=== PATIENT | male | born 1930 | race Caucasian/White ===

== ENCOUNTER → 2017-12-26 | Outpatient (CLI) | payer MEDICARE ==
--- NOTE | 2017-12-26 08:31 | CT ---
EXAMINATION TYPE: CT abdomen pelvis wo con DATE OF EXAM: 12/26/2017 HISTORY: Hematuria CT DLP: 975 mGycm. Automated Exposure Control for Dose Reduction was Utilized. TECHNIQUE: CT scan of the abdomen and pelvis is performed without oral or IV contrast. COMPARISON: NONE FINDINGS: Within the limitations of a non-contrast study, the following observations are made. LUNG BASES: There is 6 x 5 mm nodule or nodular density right midlung anteriorly axial image 9. There is some mild to minimal scattered linear scarring and/or atelectasis in both bases. There is fairly severe 3 vessel coronary artery calcification noted which is noted marker for coronary artery disease . Calcification at level of mitral valve is appreciated. There is small to moderate-sized hiatal landen ia. LIVER/GB: Liver is somewhat small in size. Gallbladder has distended margins. PANCREAS: Mild fat replaced atrophy of pancreas is present.. SPLEEN: There is marked measuring 18.1 cm long axis axial image 67 and 16.9 cm craniocaudal dimension coronal image 41. ADRENALS: No significant abnormality is seen. KIDNEYS: There is linear density suspected elongated calculus or adjacent smaller calculi lower pole level left kidney, at least one 2 mm calculus is present coronal image 40. There is simple appearing 4.8 x 3.5 cm cyst laterally lower pole level left kidney. There is simple appearing 1.5 cm cyst poste rior laterally mid pole level left kidney axial image 85. No right-sided renal calculi are seen. Ther e are multiple large calculi dependently in bladder. Calculi measure between 1 to 2 cm in diameter BOWEL: Small to moderate size hiatal hernia. No suspicious small or large bowel dilatation. GENITAL ORGANS: There is enlarged prostate gland bulging on bladder base, consistent with BPH. Centra l calcification superiorly could reflect calculi within proximal urethra or superior central zone alonzo culi. More peripheral calculi are seen inferiorly in the enlarged prostate gland. Adjacent pelvic phl eboliths are seen. Bladder wall is mildly thickened up to 6 mm. LYMPH NODES: No greater than 1cm abdominal or pelvic lymph nodes are appreciated. OSSEOUS STRUCTURES: There are bilateral pars defects L4 level. There is grade 1 anterolisthesis of L4 on L5. Advanced disc space narrowing at this level is present. There is slight grade 1 retrolisthesi s of L5 on S1 with advanced disc space narrowing. There is moderate to advanced disc space narrowing L2-L3 level most prominent posteriorly. There is multilevel spurring in the thoracolumbar spine. Osse ous structures are demineralized. There is moderate joint space loss in both hips. Disc herniation L1 -L2 level effaces anterior thecal sac sagittal image 53 and axial image 66. There is facet arthropath y lower lumbar levels. OTHER: There is moderate to severe calcified plaque of abdominal aorta extending into branch vessels. IMPRESSION: 1. Multiple large dependent bladder calculi. Suspect calculi extending into proximal urethra. Suspect small lower pole left renal calculi. 2. Splenomegaly is seen which may warrant further clinical workup. Slightly small liver noted. Clinic al and lab correlation to exclude cirrhosis advised. 3. There is 6 x 5 mm nodule or nodular density right midlung anteriorly, advise contrast-enhanced [facility] CT to assess for additional nodules.
== END | disposition home or self-care (01) ==
LOC: RADCTMAIN 07:48
PROVIDERS: ATTEND Urology
DX: N21.0 Calculus in bladder (principal); R16.1 Splenomegaly, not elsewhere classified; K76.89 Other specified diseases of liver; Z87.442 Personal history of urinary calculi
CPT/HCPCS: 74176

== ENCOUNTER → 2018-01-30 | Outpatient (CLI) | payer MEDICARE ==
[2018-01-30 10:01] LABS: Anisocytosis Moderate; HCT 48.5 % (39.0-53.0); HGB 13.5 gm/dL (13.0-17.5); Hypochromasia Marked; MCH 22.2 pg (25.0-35.0); MCHC 27.8 g/dL (31.0-37.0); MCV 79.7 fL (80.0-100.0); Mean Platelet Volume 7.8; Microcytosis Slight; Platelet Count 329 k/uL (150-450); Poikilocytosis Moderate; RBC 6.08 m/uL (4.30-5.90); RDW 20.4 % (11.5-15.5)
[2018-01-30 10:13] LABS: Calcium 8.6 mg/dL (8.4-10.2); Potassium 4.7 mmol/L (3.5-5.1)
[2018-01-30 10:29] LABS: Band Neutrophils % 1 %; Eosinophils # (M) 0.84 k/uL (0-0.7); Lymphocytes # (M) 0.84 k/uL (1.0-4.8); Monocytes # (M) 1.68 k/uL (0-1.0); Neutrophils % (M) 92 %; Nucleated Red Blood Cells 0 /100 WBC (0-0); Total Cells Counted 200
[2018-01-30 10:31] LABS: Polychromasia Present
[2018-01-30 10:32] LABS: Toxic Vacuolation Present
[2018-01-30 10:38] LABS: WBC 41.9 k/uL (3.8-10.6)
== END | disposition home or self-care (01) ==
LOC: LABPAT 09:10
PROVIDERS: ATTEND Urology
DX: Z01.818 Encounter for other preprocedural examination (principal); Z01.812 Encounter for preprocedural laboratory examination; R53.83 Other fatigue; R31.29 Other microscopic hematuria; N21.0 Calculus in bladder; Z79.899 Other long term (current) drug therapy
CPT/HCPCS: 36415; 80048; 85025; 87086; 93005

== ENCOUNTER 2018-02-04 09:39 | Day surgery (SDC) | payer MEDICARE ==
[2018-01-27 13:43] VITALS: BMI 25.1
--- NOTE | 2018-02-03 14:27 | P.GSHP ---
History of Present Illness H&P Date: 02/03/18 Chief Complaint: Multiple bladder calculi The patient experienced gross hematuria several months ago while in [place]. He was evaluated by me on 12/23/2017 and was noted to have persistent microscopic hematuria. CT scan of the abdomen and pelvis without IV contrast on 12/26/2017 identified some 1-2 mm calculi in the lower pole left kidney. At least 10-12 bladder calculi were present measuring up to 21 millimeters in diameter. The patient has a history of uric acid bladder calculi and underwent TURP and cystolithotripsy in [place] in 2011. He continues to have an enlarged prostate but has no significant symptoms of bladder outflow obstruction at the present. He usually voids every 2-3 hours during the day and once or twice at night. In view of the multiple large bladder calculi and the enlarged prostate it is my feeling that an open procedure would be preferable to repeat cystolithotripsy, especially in view of the difficulty in fragmenting uric acid calculi. - Constitutional Constitutional: Denies chronic pain - Cardiovascular Cardiovascular: Denies chest pain, Denies lightheadedness, Denies orthopnea, Denies palpitations, Denies shortness of breath - Respiratory Respiratory: Denies cough, Denies wheezing - Gastrointestinal Gastrointestinal: Denies abdominal pain, Denies constipation - Genitourinary (Female) Genitourinary: Reports as per HPI Past Medical History Past Medical History: Blood Disorder (Polycythemia and thrombocytosis), Cancer, Deep Vein Thrombosis (DVT), Prostate Disorder Additional Past Medical History / Comment(s): BPH, HX OF DVT'S , SQUAMOUS CELL SKIN CANCER., POLYCYTHEMIA VERA, RECEIVES PHLEBOTOMY'S WITH DR COULTER., WEARS THIGH HIGH SUPPORT HOSE. , HX OF KIDNEY STONES., STATES CURRENTLY HAS MULTIPLE KIDNEY STONES AND HEMATURIA. History of Any Multi-Drug Resistant Organisms: None Reported Past Surgical History: Hernia Repair (left), Joint Replacement, Prostate Surgery (Turp 2003 and 2011, Cystolithotripsy 2003 and 2011) Additional Past Surgical History / Comment(s): TOTAL LEFT KNEE, INGUINAL HERNIA. , CATARACTS., LITHOTRIPSY AND KIDNEY STONES PROCEDURES Past Anesthesia/Blood Transfusion Reactions: No Reported Reaction Past Psychological History: No Psychological Hx Reported Smoking Status: Never smoker Past Alcohol Use History: Occasional Past Drug Use History: None Reported - Past Family History Mother Family Medical History: No Reported History Medications and Allergies Home Medications Medication Instructions Recorded Confirmed Type Anagrelide HCl 1 mg PO BID 01/27/18 01/27/18 History Aspirin 325 mg PO HS 01/27/18 01/27/18 History Cholecalciferol (Vitamin D3) 2,000 unit PO DAILY 01/27/18 01/27/18 History [Vitamin D3] Hydroxyurea [Hydrea] 500 mg PO DAILY 01/27/18 01/27/18 History Occuvite 1 dose PO DAILY 01/27/18 01/27/18 History Prostata Supplement 1 tab PO DAILY 01/27/18 01/27/18 History Vitamin E (Dl,Tocopheryl Acet) 400 unit PO DAILY 01/27/18 01/27/18 History [Vitamin E] Allergies Allergy/AdvReac Type Severity Reaction Status Date / Time No Known Allergies Allergy Verified 01/27/18 13:00 Surgical - Exam - General well developed, well nourished, no distress - ENT no hearing loss - Neck no masses, no bruits, no lymphadectomy - Cardiovascular Rhythm: regular Heart Sounds: normal: S1, S2 Abnormal Heart Sounds: no systolic murmur, no diastolic murmur - Abdomen Abdomen: soft, non tender, no organomegaly - Genitourinary normal penis with no external lesions, testicles non-tender - Rectum Rectum: other (Prostate 2-3+ enlarged) Assessment and Plan (1) Bladder calculi Narrative/Plan: The patient will undergo open cystolithotomy under either general or spinal anesthesia for treatment of his multiple bladder calculi. He is aware of the operative risks which include anesthesia, bleeding, infection and recurrence of his bladder calculi. Status: Acute Code(s): N21.0 - CALCULUS IN BLADDER SNOMED Code(s): 20471489
[~2018-02-04 09:39] MED LIST: DEXAMETHASONE SOD PHOSPHATE 10 MG/ML 1 ML VIAL IV ONE; LACTATED RINGERS 1,000 ML IV SCH; MIDAZOLAM 2 MG/2 ML VIAL IV PRN; ONDANSETRON 4 MG/2 ML VIAL IVP ONE; fentaNYL (PF) 50 MCG/ML 2 ML AMP IV PRN
[2018-02-04] MEDS ORDERED: LIDOCAINE 1% 20 ML VIAL (10MG/ML) FOR IV START INTRADERMA ONE (10:43)
[2018-02-04] MEDS ORDERED: fentaNYL (PF) 50 MCG/ML 2 ML AMP ONE (12:14)
[2018-02-04] MEDS ORDERED: NEOSTIGMINE 1 MG/ML 10 ML VIAL ONE (12:14)
[2018-02-04] MEDS ORDERED: ROCURONIUM BROMIDE 10 MG/ML 10 ML VIAL IV ONE (12:14)
[2018-02-04] MEDS ORDERED: SUCCINYLCHOLINE CHLORIDE 100 MG/5 ML SYR IV ONE (12:14)
[2018-02-04] MEDS ORDERED: GLYCOPYRROLATE 0.2 MG/ML 2 ML VIAL ONE (12:14)
[2018-02-04] MEDS ORDERED: PROPOFOL 10 MG/ML 20 ML VIAL IV ONE (12:14)
[2018-02-04] MEDS ORDERED: LIDOCAINE 1% INJ 10MG/ML (20 ML MDV) ONE (12:14)
[2018-02-04] MEDS: ceFAZolin 1,000 MG in DEXTROSE/WATER 1 50ML.BAG IVPB ONE ×2 (12:16→12:40)
[2018-02-04] MEDS ORDERED: LACTATED RINGERS 1,000 ML IV ONE (12:40)
--- NOTE | 2018-02-04 13:41 | P.OP ---
Date of Procedure: 02/04/18 Preoperative Diagnosis: Multiple bladder calculi Postoperative Diagnosis: Multiple bladder calculi Procedure(s) Performed: Cystolithotomy Surgeon: Lacho Tinsley Estimated Blood Loss (ml): 5 Pathology: other (Bladder calculi) Condition: stable Disposition: PACU Indications for Procedure: The patient is an 87-year-old male who was recently evaluated due to gross hematuria and noted to have at least 10-12 bladder calculi measuring up to 2.1 cm in size present within the bladder on a computed tomography scan of the abdomen and pelvis. Patient has undergone 2 previous endoscopic treatments for bladder calculi over the last 20 years. His bladder calculi are composed of uric acid. Patient has BPH with protrusion of the prostate into the bladder and it is my feeling that open cystolithotomy would be preferable to an endoscopic procedure for removal of the calculi. Description of Procedure: The patient was taken to the operating suite where adequate general anesthesia via orotracheal intubation was instituted. The patient was placed supine. Sequential pneumatic compression stockings were applied to the lower legs. The hair in the lower abdomen was clipped. The genitalia was prepped with Betadine solution. The lower abdominal was painted with iodine prep. The lower abdominal incision was then draped in a sterile fashion. An 18-Chinese coud catheter was passed through the urethra and and into the bladder and approximately 150 mL of sterile water was instilled through the catheter to distend the bladder. A lower abdominal midline incision was made. Bleeding vessels were controlled using electrocautery. The subcutaneous fat and linea alba were incised in the midline. The bladder was identified and a 3-4 cm cystotomy was made. Retractors were used to visualize the interior the bladder. Multiple bladder calculi measuring anywhere from 1-2 cm in size were removed using forceps. There was ocular switch appeared to be adherent to the region of the bladder neck and proximal prostatic urethra and this was removed using forceps. The bladder was thoroughly irrigated with saline and at completion procedure no calculi were present visually or could be palpated. The urothelium was closed using running 3-0 chromic. The bladder muscle was closed using running 3-0 Vicryl. The skin was closed using colleen. A sterile dressing was applied. The patient tolerated procedure well and left the operating room awake and in satisfactory condition. The patient's catheter will remain in place for approximately 1 week. Blood loss was less than 5 mL. It is anticipated that the patient may be discharged later today or in the morning if comfortable.
[2018-02-04 13:42] VITALS: TEMP 97.3
[2018-02-04] MEDS ORDERED: SODIUM CHLORIDE 0.9% 1,000 ML IV ONE (14:11)
[2018-02-04] MEDS ORDERED: hydrALAZINE HCL 20 MG/ML 1 ML VIAL IVP ONE (15:02)
[2018-02-04 15:38] VITALS: BP 159/77; PULSE 70; RESP 18
== END 2018-02-04 15:50 | disposition home or self-care (01) ==
LOC: OR 09:39
PROVIDERS: ATTEND Urology
DX: N21.0 Calculus in bladder (principal); D45 Polycythemia vera; Z86.718 Personal history of other venous thrombosis and embolism; N20.0 Calculus of kidney; K21.9 Gastro-esophageal reflux disease without esophagitis; R31.9 Hematuria, unspecified; N40.0 Benign prostatic hyperplasia without lower urinary tract symptoms; Z79.02 Long term (current) use of antithrombotics/antiplatelets; Z79.82 Long term (current) use of aspirin; Z79.899 Other long term (current) drug therapy
CPT/HCPCS: 51050; C1769; J0360; J1100; J2710; J2405; J2001; J3010; J0690; J0330; J2704

== ENCOUNTER → 2018-08-24 | Outpatient (CLI) | payer MEDICARE ==
--- NOTE | 2018-08-24 11:10 | CT ---
EXAMINATION TYPE: CT angio chest DATE OF EXAM: 08/24/2018 COMPARISON: NONE HISTORY: Shortness of breath CT DLP: 292.10 mGycm. Automated Exposure Control for Dose Reduction was Utilized. CONTRAST: CTA scan of the thorax is performed without and with IV Contrast, patient injected with 80 mL of Iso sorin 370, pulmonary embolism protocol. MIP Images are created on CT scanner and reviewed. FINDINGS: LUNGS: There are small to moderate-sized right greater than left pleural effusions with associated co mpressive atelectasis in both bases. Central ground glass opacity bilaterally is present. MEDIASTINUM: There is suboptimal bolus with heterogeneity, but there is no CT evidence for central or lobar pulmonary embolism pulmonary embolism. Segmental and subsegmental PE cannot entirely excluded with more peripheral heterogeneity identified. There are no greater than 1 cm hilar or mediastinal l ymph nodes. Small pericardial effusion is seen. Cardiomegaly is identified with moderate biatrial dil atation. Severe three-vessel coronary artery calcification is present which is noted marker for under lying coronary artery disease. Main pulmonary artery measures 3.6 cm in diameter axial image 35. Denisha cent ascending aorta measures up to 3.[address] findings consistent with underlying pulmon omayra artery hypertension. There is reflux of contrast into hepatic veins and IVC, CT findings suggesti ng underlying right heart failure. OTHER: Splenomegaly is partially visualized at 18.6 cm long axis axial image 127. This is detailed o n prior CT abdomen pelvis study. Moderate multilevel disc space narrowing and vacuum disc phenomenon is seen. Mild diffuse subcutaneous edema is present. Bridging rib deformity right anterolateral secon d and third ribs is noted. IMPRESSION: 1. Suboptimal bolus without large central pulmonary embolism. 2. Correlate for CHF exacerbation as there is cardiomegaly with small to moderate right greater than left pleural effusions and mild bilateral central alveolar edema. 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
== END | disposition home or self-care (01) ==
LOC: RADCTMAIN 09:11
PROVIDERS: ATTEND Internal Medicine Hematology & Oncology
DX: I27.20 Pulmonary hypertension, unspecified (principal); I50.9 Heart failure, unspecified; I51.7 Cardiomegaly
CPT/HCPCS: 82565; 84520; 71275; 36415; Q9967

== ENCOUNTER → 2018-09-29 | Outpatient (CLI) | payer MEDICARE ==
[2018-09-29 16:21] LABS: Anion Gap 11.3 mmol/L (4.00-12.00); Carbon Dioxide 26.7 mmol/L (21.6-31.8); Potassium 5.6 mmol/L (3.5-5.5)
== END | disposition home or self-care (01) ==
LOC: LABWHC1 10:31
PROVIDERS: ATTEND Internal Medicine Cardiovascular Disease
DX: I50.22 Chronic systolic (congestive) heart failure (principal)
CPT/HCPCS: 36415; 80051; 82565; 84520

== ENCOUNTER → 2018-11-10 | Outpatient (CLI) | payer MEDICARE ==
--- NOTE | 2018-11-10 18:59 | US ---
EXAMINATION TYPE: US venous doppler duplex LE LT DATE OF EXAM: 11/10/2018 6:18 PM COMPARISON: NONE CLINICAL HISTORY: I82.402 Acute embolism and thrombosis of. Pain and ulcer. SIDE PERFORMED: Left TECHNIQUE: The lower extremity deep venous system is examined utilizing real time linear array sonog artem with graded compression, doppler sonography and color-flow sonography. VESSELS IMAGED: External Iliac Vein (EIV) Common Femoral Vein Deep Femoral Vein Greater Saphenous Vein * Femoral Vein Popliteal Vein Small Saphenous Vein * Proximal Calf Veins (* superficial vessels) Left Leg: Negative for DVT No evidence of DVT left leg. IMPRESSION: Normal left leg duplex venous sonogram.
== END | disposition home or self-care (01) ==
LOC: RADUSWWP 17:43
PROVIDERS: ATTEND Internal Medicine Geriatric Medicine
DX: I82.402 Acute embolism and thrombosis of unspecified deep veins of left lower extremity (principal)

== ENCOUNTER → 2019-06-09 | Outpatient (CLI) | payer MEDICARE ==
--- NOTE | 2019-06-09 15:36 | US ---
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 VESSELS IMAGED: External Iliac Vein (EIV) Common Femoral Vein Deep Femoral Vein Greater Saphenous Vein * Femoral Vein Popliteal Vein Small Saphenous Vein * Proximal Calf Veins (* superficial vessels) Grayscale, color doppler, spectral doppler imaging performed of the deep veins of the lower extremiti es. Right Leg: +positive for DVT right femoral vein extending into popliteal vein Left Leg: +positive for DVT left femoral vein extending into popliteal vein IMPRESSION: Positive bilateral deep venous thrombosis from the femoral veins and popliteal veins. Ignacio Lockett (puller machine) spoke with Arely at wound center, patient advised to see Dr. Danielle, young estrella to get in today, patient to go to ER. This was documented at 1450pm on 06/09/2019.
== END ==
LOC: RADUSWWP 13:27
PROVIDERS: ATTEND Thoracic Surgery (Cardiothoracic Vascular Surgery)
DX: I82.419 Acute embolism and thrombosis of unspecified femoral vein (principal); I82.439 Acute embolism and thrombosis of unspecified popliteal vein; L97.222 Non-pressure chronic ulcer of left calf with fat layer exposed
CPT/HCPCS: 93970

== ENCOUNTER → 2019-06-11 | Outpatient (CLI) | payer MEDICARE ==
--- NOTE | 2019-06-11 13:58 | CT ---
CT CHEST FOR PULMONARY EMBOLISM. EXAMINATION TYPE: CT angio chest DATE OF EXAM: 06/11/2019 INDICATION: History of polycythemia, known DVTs. CT DLP: 520 mGycm, Automated exposure control for dose reduction was used. CONTRAST: Patient injected with 100 mL of Isovue 370. COMPARISON: 08/24/2018 TECHNIQUE: CT of the chest is performed on a spiral scan at 2 mm thick sections. Study is performed with intravenous contrast timed for evaluation for pulmonary embolism. This will limit additional po rtions of the evaluation. 3-D MIP images reconstructed by the technologist are reviewed on the compu ter in the coronal and sagittal planes. FINDINGS: No persistent filling defects are evident to suggest an acute pulmonary embolism. No mediastinal or hilar adenopathy enlarged by CT criteria is evident. The ascending aorta diameter at the level of the main pulmonary artery is 4.1 cm. The main pulmonary artery diameter at the bifur cation is 3.8 cm. Minimal right pleural effusion is present. Very minimal left pleural fluid may be present. Some mild coronary artery calcification is noted. Prior right upper rib fracture with deformity is evident. Some compressive atelectasis or scarring ma y be adjacent. Small amount of scarring may be adjacent to the right major fissure, series 5 image [address] sections are obtained through the upper abdomen. There is marked splenomegaly. Cholelithia sis is likely present. IMPRESSIONS: 1. No acute pulmonary embolism. 2. Marked splenomegaly. 3. Small right and very minimal left pleural effusion, diminished from comparison
== END | disposition home or self-care (01) ==
LOC: RADCTMAIN 12:24
PROVIDERS: ATTEND Internal Medicine Geriatric Medicine
DX: J90 Pleural effusion, not elsewhere classified (principal)
CPT/HCPCS: 82565; 84520; 71275; 36415; Q9967

== ENCOUNTER → 2019-07-13 | Outpatient (CLI) | payer MEDICARE ==
[2019-07-13 15:52] LABS: African American GFR (CKD) 40.5 (60.0-200.0); Albumin 4.1 g/dL (3.80-4.90); Albumin/Globulin Ratio 1.86 (1.60-3.17); Anion Gap 13.2 mmol/L (4.00-12.00); BUN/Creat Ratio 28.24 Ratio (12.00-20.00); Calcium 8.6 mg/dL (8.7-10.3); Carbon Dioxide 23.8 mmol/L (21.6-31.8); Globulin 2.2 g/dL (1.6-3.3); Potassium 4.1 mmol/L (3.5-5.5); Total Bilirubin 0.9 mg/dL (0.2-1.2); Total Protein 6.3 g/dL (6.2-8.2)
== END | disposition home or self-care (01) ==
LOC: LABWHC1 08:29
PROVIDERS: ATTEND Nurse Practitioner Gerontology
DX: I11.0 Hypertensive heart disease with heart failure (principal); I50.9 Heart failure, unspecified
CPT/HCPCS: 36415; 80053; 83880

== ENCOUNTER → 2019-07-13 | Outpatient (CLI) | payer MEDICARE ==
--- NOTE | 2019-07-21 11:03 | P.ARTDOP ---
Arterial Doppler LOWER EXTREMITY ARTERIAL DOPPLER: DATE OF SERVICE: 07/13/2019 Reason for study: Left calf ulcer. Doppler waveforms: Multiphasic bilaterally throughout. Pulse volume recording: []. Pressure gradients: []. Ankle-brachial indices: []. Toe pressures: 57 on the right, 53 on the left Impression: Waveforms and toe pressures suggests adequate circulation for healing. Clinical correlation recommended in view of limited study..
== END | disposition home or self-care (01) ==
LOC: RADUSWWP 08:59
PROVIDERS: ATTEND Thoracic Surgery (Cardiothoracic Vascular Surgery)
DX: L97.222 Non-pressure chronic ulcer of left calf with fat layer exposed (principal)
CPT/HCPCS: 93922

== ENCOUNTER → 2019-10-15 | Outpatient (CLI) | payer MEDICARE ==
[2019-10-15 11:59] LABS: Potassium 4.5 mmol/L (3.5-5.1)
[2019-10-15 12:04] LABS: Anisocytosis Slight; HCT 46.8 % (39.0-53.0); HGB 12.8 gm/dL (13.0-17.5); Hypochromasia Marked; MCH 23.4 pg (25.0-35.0); MCHC 27.3 g/dL (31.0-37.0); MCV 85.7 fL (80.0-100.0); Mean Platelet Volume 10.6; Platelet Count 506 k/uL (150-450); Poikilocytosis Slight; RBC 5.46 m/uL (4.30-5.90); RDW 19.3 % (11.5-15.5)
[2019-10-15 13:00] LABS: Lymphocytes # (M) 1.91 k/uL (1.0-4.8); Metamyelocytes # (M) 0.64 k/uL (0); Metamyelocytes % 1 %; Monocytes # (M) 1.91 k/uL (0-1.0); Myelocytes # (M) 0.64 k/uL (0); Myelocytes % 1 %; Neutrophils # (M) 59.06 k/uL (1.3-7.7); Neutrophils % (M) 93 %; Nucleated Red Blood Cells 0 /100 WBC (0-0); Total Cells Counted 200
[2019-10-15 13:01] LABS: Polychromasia Present
[2019-10-15 14:22] LABS: WBC 63.5 k/uL (3.8-10.6)
== END | disposition home or self-care (01) ==
LOC: LABPAT 10:54
PROVIDERS: ATTEND Surgery
DX: Z01.818 Encounter for other preprocedural examination (principal); I99.8 Other disorder of circulatory system; L97.821 Non-pressure chronic ulcer of other part of left lower leg limited to breakdown of skin
CPT/HCPCS: 36415; 80051; 82565; 84520; 85025

== ENCOUNTER 2019-10-19 06:51 | Inpatient (IN) | payer MEDICARE ==
[2019-10-15 09:51] VITALS: BMI 25.8
[~2019-10-19 06:51] MED LIST changes: +ASPIRIN 325 MG TAB PO STA; -DEXAMETHASONE SOD PHOSPHATE 10 MG/ML 1 ML VIAL IV ONE; -LACTATED RINGERS 1,000 ML IV SCH; -MIDAZOLAM 2 MG/2 ML VIAL IV PRN; -ONDANSETRON 4 MG/2 ML VIAL IVP ONE; +SODIUM CHLORIDE 0.9% 1,000 ML in EMPTY BAG 1 BAG IV ONE; +ZOLPIDEM 5 MG TAB PO PRN; -fentaNYL (PF) 50 MCG/ML 2 ML AMP IV PRN
[2019-10-19] MEDS ORDERED: MIDAZOLAM 2 MG/2 ML VIAL IV ONE (08:57)
[2019-10-19] MEDS ORDERED: LIDOCAINE 1% INJ 10MG/ML (20 ML MDV) SQ ONE (08:59)
[2019-10-19] MEDS ORDERED: IOPAMIDOL-250 100ML BTL IV ONE (09:16)
[2019-10-19] MEDS ORDERED: VANCOMYCIN IV PER PHARMACY 1 EACH MISC MISCELLANE SCH (10:00)
--- NOTE | 2019-10-19 10:00 | IR ---
Fluoroscopy INDICATION: Pain FINDINGS: Fluoroscopy time: 3.6 minutes Images obtained: 5 video fluoroscopy. Please see complete report forthcoming from the vascular surgery department. IMPRESSIONS: 1. Documentation of fluoroscopy.
--- NOTE | 2019-10-19 10:01 | P.OP ---
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 Since moderate atherosclerotic disease of the distal SFA Procedure: Aortogram with selective left lower extremity runoffs via right femoral artery access under ultrasound guidance Surgeon: Darius Anesthesia: Moderate sedation times 25 minutes Estimated blood loss: 5 mL Complications: None Condition: Stable Findings: Aorta: Atherosclerotic, calcific disease without any significant stenosis. Mild ectasia noted at the distal aorta. Iliacs: Bilateral common iliac arteries are patent with atherosclerotic, calcific disease. Internal iliac arteries are patent without any significant stenosis or disease. External iliac arteries bilaterally are patent without any hemodynamic significant stenosis. Femorals: Bilateral common femoral arteries are patent without significant stenosis. Bilateral profundus femoris arteries are patent without significant stenosis. Left superficial femoral artery is patent with calcific disease at the distal aspect. No significant stenosis noted. Popliteal: Left popliteal artery is patent. There is difficult to visualize due to hardware in the knee. Flow is normal and brisk pass this area to the tibial peroneal trunk. Tibials: Left tibioperoneal trunk is patent with some atherosclerotic, calcific disease. Three-vessel takeoff anterior tibial artery and peroneal with sharp occlusion noted at the midportion of the anterior tibial artery. No recollateralization is noted at the anterior tibial artery to the dorsalis pedis. There is reconstitution of the posterior tibial artery above the ankle extending into the foot. Operative narrative: After written informed consent was obtained the patient all risks benefits competitions were described the patient is brought to the [facility] and laid in a supine position. The area of the right groin was prepped and draped in the usual sterile fashion. Local anesthesia with moderate sedation was performed with continuous pulse ox monitoring and EKG monitoring. Utilizing ultrasound the right femoral artery was visualized and shown to be patent without any significant plaque. Utilizing a multipurpose needle under ultrasound guidance the artery was accessed. Guidewire was placed followed by 5-Occitan sheath. 035 Glidewire was then placed into the aorta followed by ochoa's hook catheter. Angiogram was then obtained of the aorta. Catheter was then placed at the bifurcation left lower extremity was accessed with Glidewire followed by an angled glide catheter. Selective left lower extremity angiogram was then obtained with catheter placement at the femoral artery. Once completed all guidewires, catheters and sheaths were removed and pressure was placed for hemostasis. Patient tolerated procedure well was sent to PACU for recovery Disposition: Patient will require a left below-knee amputation which based on angiogram should heal. I discussed this with his primary care physician as well as wound care physician. We will perform the procedure tomorrow.
--- NOTE | 2019-10-19 10:47 | P.CRDCN ---
History of Present Illness Consult date: 10/19/19 Requesting physician: Troy Mccoy Reason for Consult (text): Preop clearance History of present illness: This is an 89-year-old gentleman who follows with Dr. Vigil in the office. He saw him on September [id number]. In August of last year the patient underwent an echocardiogram with Doppler study which revealed mild LV systolic dysfunction, he has moderate tricuspid regurg and severe pulmonary hypertension as well as mild aortic regurgitation. A 24-hour Holter was also performed which did reveal episodes of atrial fibrillation. Johnna scan revealed nonischemic cardiomyopathy with an ejection fraction of 35%. During the office visit in September of last Dr. Vigil discussed anticoagulation with the patient and his , they decided to take only an aspirin daily. He also discussed the possibility of cardiac catheterization, they opted for medical therapy at that time. Patient denies any history of hypertension, no diabetes, no hyperlipidemia, nonsmoker, rarely does he drink alcohol. 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 Patient presented to the hospital because of critical limb ischemia of the left lower extremity, gangrene of the forefoot and toes with chronic venous and arterial ulcerations. He underwent an aortogram with selective left lower extremity runoffs via right femoral artery access under ultrasound guidance by Dr. Mccoy. He was found to have an occluded left anterior tibial and posterior tibial arteries. Moderate atherosclerotic disease of the distal SFA. Patient will require a left below the knee amputation. Cardiology was asked for preop clearance. Patient denies any recent chest discomfort and overall he states his breathing has been stable. Blood pressure 104/50, heart rate in the 80s, afebrile. 92% on room air. Laboratory data, [facility] labs are performed on October 14, white blood cell count 63.5, hemoglobin 12.8, platelet count 506. Sodium 138, potassium 4.5, BUN 46, creatinine 1.3. No lab data has been obtained today as of yet. No chest x-ray. No EKG. At the time of my examination, patient is lying comfortably in bed, denies any chest discomfort, no difficulty in breathing, no palpitations. He is having some discomfort in his left foot. Past Medical History Past Medical History: Blood Disorder, Cancer, Deep Vein Thrombosis (DVT), Hearing Disorder / Deafness, Prostate Disorder Additional Past Medical History / Comment(s): BPH, HX OF DVT'S , SQUAMOUS CELL SKIN CANCER., POLYCYTHEMIA VERA, RECEIVES PHLEBOTOMY'S WITH DR COULTER., WEARS THIGH HIGH SUPPORT HOSE. , HX OF KIDNEY STONES., CURRENTLY HAS NHW LT LOWER LEG AND TOES, [place]-USES HEARING AIDS History of Any Multi-Drug Resistant Organisms: MRSA, Other MDRO Date of last positivie culture/infection: 08/11/19 MDRO Source:: Right Leg Past Surgical History: Hernia Repair, Joint Replacement Additional Past Surgical History / Comment(s): TOTAL LEFT KNEE, INGUINAL HERNIA., CATARACTS., LITHOTRIPSY AND KIDNEY STONES PROCEDURES, COLONOSCOPY Past Anesthesia/Blood Transfusion Reactions: No Reported Reaction Past Psychological History: No Psychological Hx Reported Smoking Status: Never smoker Past Alcohol Use History: Occasional Past Drug Use History: None Reported - Past Family History Mother Family Medical History: No Reported History Medications and Allergies Home Medications Medication Instructions Recorded Confirmed Type Allopurinol [Zyloprim] 300 mg PO DAILY 10/15/19 10/19/19 History Apixaban [Eliquis] 2.5 mg PO BID 10/15/19 10/15/19 History Ferrous Sulfate [Feosol] 325 mg PO DAILY 10/15/19 10/19/19 History Furosemide [Lasix] 10 mg PO DAILY 10/15/19 10/19/19 History Furosemide [Lasix] 20 mg PO DAILY 10/15/19 10/19/19 History Hydroxyurea [Hydrea] 500 mg PO Q2D 10/15/19 10/15/19 History Losartan [Cozaar] 25 mg PO DAILY 10/15/19 10/19/19 History Metoprolol Succinate [Toprol XL] 12.5 mg PO DAILY 10/15/19 10/19/19 History Potassium Citrate [Potassium 10 meq PO TID 10/15/19 10/19/19 History Citrate ER] Vit C/E/Zn/Coppr/Lutein/Zeaxan 1 each PO DAILY 10/15/19 10/19/19 History [Preservision Areds 2 Softgel] Allergies Allergy/AdvReac Type Severity Reaction Status Date / Time No Known Allergies Allergy Verified 10/15/19 09:27 Physical Exam Vitals: Vital Signs Temp Pulse Resp BP BP Pulse Ox 10/19/19 10:41 85 16 104/54 91 L 10/19/19 10:27 98.4 F 81 16 116/75 91 L 10/19/19 09:40 84 16 100/57 93 L 10/19/19 07:15 99.1 F 92 18 116/69 97 Intake and Output 10/18/19 10/19/19 10/19/19 22:59 06:59 14:59 Intake Total 200 Balance 200 Intake: IV 200 Other: Weight 83.8 kg PHYSICAL EXAMINATION: GENERAL: 89-year-old gentleman in no acute distress at the time of my examination HEENT: Head is atraumatic, normocephalic. Pupils equal, round. Sclera anicteric. Conjunctiva are clear. Mucous membranes of the mouth are moist. Neck is supple. There is no elevated jugular venous pressure.] No carotid bruit is heard. HEART EXAMINATION: Heart S1 and S2 with diastolic murmur is heard CHEST EXAMINATION: Lungs are clear to auscultation and precussion. No chest wall tenderness is noted on palpation or with deep breathing. ABDOMEN: Soft, nontender. Bowel sounds are heard. No organomegaly noted. EXTREMITIES: Doppler to 1+ peripheral pulses with evidence of bilateral peripheral edema. The left foot is necrotic, black, foul odor. NEUROLOGIC [patient is awake, alert and oriented 3 Results Current Medications Generic Name Dose Route Start Last Admin Trade Name Freq PRN Reason Stop Dose Admin Allopurinol 300 mg 10/20/19 09:00 Zyloprim PO DAILY NEDRA Alprazolam 0.25 mg 10/19/19 05:55 Xanax PO Q6HR PRN Mild Anxiety Ferrous Sulfate 325 mg 10/20/19 09:00 Feosol PO DAILY NEDRA Sodium Chloride 1,000 ml/ IV 1,000 mls @ 81.647 mls/hr 10/19/19 05:55 10/19/19 07:20 Solution IV 10/19/19 18:09 200 mls .[id number] ONE Administration 1 ML/KG/HR Piperacillin Sod/Tazobactam 100 mls @ 25 mls/hr 10/19/19 16:00 Sod 3.375 gm/ Sodium Chloride IVPB Q8HR NEDRA Vancomycin HCl 1,500 mg/ 250 mls @ 125 mls/hr 10/19/19 12:00 Sodium Chloride IVPB 10/19/19 13:59 ONCE ONE Sodium Chloride 1,000 mls @ 75 mls/hr 10/19/19 10:30 Saline 0.9% IV .[id number] [facility] Metoprolol Succinate 12.5 mg 10/20/19 09:00 Toprol Xl PO DAILY [facility] Miscellaneous Information 1 each 10/19/19 10:00 Pharmacy To Dose Iv Vancomycin MISCELLANE DIRECTED [facility] Protocol Zolpidem Tartrate 5 mg 10/19/19 05:55 Ambien PO HS PRN Insomnia Intake and Output 10/18/19 10/19/19 10/19/19 22:59 06:59 14:59 Intake Total 200 Balance 200 Intake: IV 200 Other: Weight 83.8 kg Patient Weight 10/20/19 06:59 Weight 83.8 kg EKG Interpretations (text) No EKG performed Assessment and Plan Plan: Assessment and plan #1 critical limb ischemia of the left lower extremity, gangrene of the forefoot and toes with chronic venous and arterial are serrations, status post angiogram with lower extremity runoffs, patient has occluded left anterior tibial and posterior tibial arteries, moderate atherosclerotic disease in the distal SFA and the recommendation is to go for a left below the knee amputation. #2 paroxysmal atrial fibrillation, not on anticoagulation, only on a baby aspirin daily #3 cardiomyopathy, as per Johnan scan stress test performed one year ago which revealed an ejection fraction of 35% #4 polycythemia vera #5 history of DVT Plan We will obtain a repeat echocardiogram with Doppler study. Obtain fasting lipid profile, continue Lopressor. Further recommendations to follow. DNP note has been reviewed, I agree with a documented findings and plan of care. Patient was seen and examined.
[2019-10-19] MEDS: SODIUM CHLORIDE 0.9% 1,000 ML IV SCH (11:52)
[2019-10-19] MEDS ORDERED: VANCOMYCIN 1,500 MG in SODIUM CHLORIDE 0.9% 250 ML IVPB ONE (12:00)
--- NOTE | 2019-10-19 12:24 | P.HPIM ---
History of Present Illness H&P Date: 10/19/19 This is an 89-year-old male patient of Drs. Danielle and Alina Rodriguez. 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 Coulter, history of DVTs most recently in June 2019 positive for bilateral lower extremity DVTs of the femoral and popliteal veins. Patient has [facility] ulcerations to the lateral left lower leg and due to nonhealing, not improving, patient was set up with vascular surgery for further evaluation and possible need for amputation. Dr. Mccoy brought the patient in for aortogram with selective left lower extremity runoffs via right femoral artery access under ultrasound guidance. He was found to have an occluded left anterior tibial and posterior tibial arteries. Moderate atherosclerotic disease of the distal SFA. Dr. Mccoy requested that we admit the patient and he will schedule him for a below the knee amputation tomorrow. We have added a consult for cardiology for preop clearance. Patient is seen today in the postop recovery area. Son has been updated. Patient denies any chest pain, difficulty breathing. Blood pressure 104/50, heart rate in the 80s, afebrile. 92% on room air. Patient will be transferred to the cardiac stepdown unit. Patient started on IV Zosyn and vancomycin. Review of Systems Constitutional: Denies chills, Denies fatigue, Denies fever, Denies lethargy, Denies malaise, Denies poor appetite Eyes: denies blurred vision, denies pain Ears, nose, mouth and throat: Denies dental pain, Denies dysphagia, Denies headache, Denies nasal congestion, Denies nasal discharge, Denies sore throat, Denies vertigo Cardiovascular: Denies chest pain, Denies decreased exercise tolerance, Denies dyspnea on exertion, Denies edema, Denies leg edema, Denies lightheadedness, Denies palpitations, Denies shortness of breath, Denies syncope Respiratory: Denies cough, Denies cough with sputum, Denies dyspnea, Denies hemoptysis, Denies home oxygen, Denies respiratory infections, Denies sleep apnea, Denies wheezing Gastrointestinal: Denies abdominal pain, Denies diarrhea, Denies nausea, Denies vomiting Genitourinary: Denies urinary frequency, Denies urinary retention Musculoskeletal: Denies frequent falls, Denies gait dysfunction, Denies muscle weakness, Denies myalgias Integumentary: Reports wounds, Denies pruritus, Denies rash Neurological: Denies change in mentation, Denies change in speech, Denies gait dysfunction, Denies numbness, Denies seizures, Denies weakness Psychiatric: Denies anxiety, Denies depression Endocrine: Denies fatigue, Denies weight change Past Medical History Past Medical History: Blood Disorder, Cancer, Deep Vein Thrombosis (DVT), Hearing Disorder / Deafness, Prostate Disorder Additional Past Medical History / Comment(s): BPH, HX OF DVT'S , SQUAMOUS CELL SKIN CANCER., POLYCYTHEMIA VERA, RECEIVES PHLEBOTOMY'S WITH DR COULTER., WEARS THIGH HIGH SUPPORT HOSE. 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 He drinks alcohol occasionally. - Past Family History Mother Family Medical History: No Reported History Additional Family Medical History / Comment(s): Mother of old age. Father Additional Family Medical History / Comment(s): Father at a young age from an accident. Brother(s) Additional Family Medical History / Comment(s): Patient had 3 brothers one has of old age and one is alive at age 91 and one at 94 with no major medical problems. Sister(s) Additional Family Medical History / Comment(s): Patient has one sister and she is with history of Down syndrome. Son(s) Additional Family Medical History / Comment(s): Patient has 2 sons with no major medical problems. Medications and Allergies Home Medications Medication Instructions Recorded Confirmed Type Allopurinol [Zyloprim] 300 mg PO DAILY 10/15/19 10/19/19 History Apixaban [Eliquis] 2.5 mg PO BID 10/15/19 10/15/19 History Ferrous Sulfate [Feosol] 325 mg PO DAILY 10/15/19 10/19/19 History Furosemide [Lasix] 10 mg PO DAILY 10/15/19 10/19/19 History Furosemide [Lasix] 20 mg PO DAILY 10/15/19 10/19/19 History Hydroxyurea [Hydrea] 500 mg PO Q2D 10/15/19 10/15/19 History Losartan [Cozaar] 25 mg PO DAILY 10/15/19 10/19/19 History Metoprolol Succinate [Toprol XL] 12.5 mg PO DAILY 10/15/19 10/19/19 History Potassium Citrate [Potassium 10 meq PO TID 10/15/19 10/19/19 History Citrate ER] Vit C/E/Zn/Coppr/Lutein/Zeaxan 1 each PO DAILY 10/15/19 10/19/19 History [Preservision Areds 2 Softgel] Allergies Allergy/AdvReac Type Severity Reaction Status Date / Time No Known Allergies Allergy Verified 10/15/19 09:27 Physical Exam Vitals: Vital Signs Temp Pulse Resp BP Pulse Ox 10/19/19 07:15 99.1 F 92 18 116/69 97 Intake and Output 10/18/19 10/19/19 10/19/19 22:59 06:59 14:59 Intake Total 200 Balance 200 Intake: IV 200 Other: Weight 83.8 kg Gen: This is an 89-year-old male patient resting on stretcher. He appears to be in no acute distress. HEENT: Head is atraumatic, normocephalic. Pupils equal, round. Sclerae is anicteric. NECK: Supple. No JVD. No lymphadenopathy. No thyromegaly. LUNGS: Clear to auscultation. No wheezes or rhonchi. No intercostal retractions. HEART: Regular rate and rhythm. Systolic murmur. ABDOMEN: Soft. Bowel sounds are present. No masses. No tenderness. EXTREMITIES: No pedal edema. Left lower extremity has a large wound to the lateral malleolus/distal tib-fib area with black necrotic tissue. Black necrotic tissue to the toes. Foul odor. Erythema from the left knee to toes. NEUROLOGICAL: Patient is awake, alert and oriented x3. Cranial nerves 2 through 12 are grossly intact. Results CBC & Chem 7: 10/19/19 11:48 10/19/19 11:48 Thrombosis Risk Factor Assmnt - DVT/VTE Prophylaxis DVT/VTE Prophylaxis: Pharmacologic Prophylaxis ordered Assessment and Plan Plan: 1. Critical limb ischemia left lower extremity with gangrene of the foot and toes with significant vascular ulcers. Patient admitted to the cardiac stepdown unit. Consult with cardiology for preop clearance. Dr. Mccoy has scheduled the patient for below the knee amputation for tomorrow. 2. Paroxysmal atrial fibrillation. Continue Toprol-XL 12.5 mg daily. 3. Nonischemic cardiomyopathy. Continue Toprol-XL. Hold Lasix for today. 4. 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 Hold eliquis until after procedure. Patient's last dose of eliquis was on October 14. 5. Polycythemia vera. Hold Hydrea. 6. Hypertension. Hold losartan 25 mg daily, hold Lasix. Continue Toprol-XL. 7. Chronic anemia. Continue ferrous sulfate.. 8. Chronic gout. Continue allopurinol 300 mg daily. 9. Squamous cell skin cancer, stable. 10. Chronic kidney disease stage III. Avoid nephrotoxic agents, hypertension. 11. DVT prophylaxis. Resume eliquis following procedure. 12. GI prophylaxis. Protonix IV. Patient will be admitted to the hospital for a minimum of 2 night stay. Discharge plan: Most likely return home. Impression and plan of care have been directed as dictated by the signing physician. Nicki Kapadia nurse practitioner acting as scribe for signing physician.
[2019-10-19 12:37] LABS: Anisocytosis Slight; HCT 44.7 % (39.0-53.0); HGB 12.6 gm/dL (13.0-17.5); Hypochromasia Marked; MCH 24.3 pg (25.0-35.0); MCHC 28.2 g/dL (31.0-37.0); MCV 86.2 fL (80.0-100.0); Mean Platelet Volume 10.2; Platelet Count 456 k/uL (150-450); Poikilocytosis Slight; RBC 5.19 m/uL (4.30-5.90)
[2019-10-19 12:48] LABS: Albumin 2.9 g/dL (3.5-5.0); Calcium 7.8 mg/dL (8.4-10.2); Potassium 4.3 mmol/L (3.5-5.1)
[2019-10-19 12:55] LABS: WBC 57.9 k/uL (3.8-10.6)
[2019-10-19] MEDS ORDERED: fentaNYL (PF) 50 MCG/ML 2 ML AMP IV PRN (15:02)
[2019-10-19] MEDS ORDERED: ONDANSETRON 4 MG/2 ML VIAL IVP ONE (15:02)
[2019-10-19] MEDS: PIPERACILLIN-TAZOBACTAM 3.375 GM in SODIUM CHLORIDE 0.9% 100 ML IVPB SCH (16:21)
[2019-10-20] MEDS: PIPERACILLIN-TAZOBACTAM 3.375 GM in SODIUM CHLORIDE 0.9% 100 ML IVPB SCH ×3 (01:32→18:26)
[2019-10-20] MEDS: SODIUM CHLORIDE 0.9% 1,000 ML IV SCH (01:32)
[2019-10-20] MEDS: VANCOMYCIN 1,500 MG in SODIUM CHLORIDE 0.9% 250 ML IVPB SCH (05:53)
[2019-10-20] MEDS: METOPROLOL SUCCINATE (ER) 25 MG TAB.ER.24H PO SCH (08:15)
[2019-10-20] MEDS: ALLOPURINOL 300 MG TAB PO SCH (08:16)
[2019-10-20] MEDS: FERROUS SULFATE 325 MG TAB PO SCH (08:16)
[2019-10-20] MEDS ORDERED: NON FORMULARY DRUG (Vit C/E/Zn/Coppr/Lutein/Zeaxan [Preservision Areds 2 Softgel] 1 EACH) PO SCH (09:00)
--- NOTE | 2019-10-20 11:08 | P.PN ---
Subjective Progress Note Date: 10/20/19 This is an 89-year-old male patient of Drs. Danielle and Alina Rodriguez. 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 Keating, history of DVTs most recently in June 2019 positive for bilateral lower extremity DVTs of the femoral and popliteal veins. Patient has been [facility] ulcerations to the lateral left lower leg and due to nonhealing, not improving, patient was set up with vascular surgery for further evaluation and possible need for amputation. Dr. Mccoy brought the patient in for aortogram with selective left lower extremity runoffs via right femoral artery access under ultrasound guidance. He was found to have an occluded left anterior tibial and posterior tibial arteries. Moderate atherosclerotic disease of the distal SFA. Dr. Mccoy requested that we admit the patient and he will schedule him for a below the knee amputation tomorrow. We have added a consult for cardiology for preop clearance. Patient is seen today in the postop recovery area. Son has been updated. Patient denies any chest pain, difficulty breathing. Blood pressure 104/50, heart rate in the 80s, afebrile. 92% on room air. Patient will be transferred to the cardiac stepdown unit. Patient started on IV Zosyn and vancomycin. 10/20: Patient seen and examined this morning. Awaiting left BKA with Dr. Mccoy at this time. Patient was seen by Dr. Gonzalez and cleared for surgery from cardiology standpoint. Eliquis remains on hold at this time. Vital signs are stable. Patient is afebrile heart rate is 80 blood pressure is 116/64 pulse ox 95% on room air. Labs were reviewed today. 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 We will continue IV antibiotics at this time. Patient is being followed by PT and OT. Objective - Vital Signs Vital signs: Vital Signs Temp 98.2 F 10/20/19 08:00 Pulse 80 10/20/19 08:00 Resp 16 10/20/19 08:00 BP 116/64 10/20/19 08:00 Pulse Ox 95 10/20/19 08:00 Intake & Output 10/19/19 10/20/19 10/20/19 18:59 06:59 18:59 Intake Total 925 300 325 Output Total 575 400 250 Balance 350 -100 75 Weight 83.8 kg 86 kg Intake: IV 200 Intake, IV Titration 475 300 325 Amount Lactated Ringers 1,000 ml 300 @ 20 mls/hr IV .Q24H NEDRA Rx#:[id number] Sodium Chloride 0.9% 1, 225 75 000 ml @ 75 mls/hr IV . [id number] NEDRA Rx#:[id number] Vancomycin 1,500 mg In 250 250 Sodium Chloride 0.9% 250 ml @ 125 mls/hr IVPB Q24H NEDRA Rx#:[id number] Oral 250 Output: Urine 575 400 250 Other: Voiding Method Self-Catheterization Self-Catheterization Self-Catheterization # Voids 0 # Bowel Movements 1 1 - Exam Gen: This is an 89-year-old male patient resting on stretcher. He appears to be in no acute distress. HEENT: Head is atraumatic, normocephalic. Pupils equal, round. Sclerae is anicteric. NECK: Supple. No JVD. No lymphadenopathy. No thyromegaly. LUNGS: Clear to auscultation. No wheezes or rhonchi. No intercostal retractions. HEART: Regular rate and rhythm. SYS murmur. ABDOMEN: Soft. Bowel sounds are present. No masses. No tenderness. EXTREMITIES: +1 pedal edema. Left lower extremity has a large wound to the lateral malleolus/distal tib-fib area with black necrotic tissue. Black necrotic tissue to the toes. Foul odor. Erythema from the left knee to toes. NEUROLOGICAL: Patient is awake, alert and oriented x3. Cranial nerves 2 through 12 are grossly intact. - Labs CBC & Chem 7: 10/19/19 11:48 10/19/19 11:48 Labs: Abnormal Lab Results - Last 24 Hours (Table) 10/19/19 10/19/19 Range/Units 11:48 11:48 WBC 57.9 H* (3.8-10.6) k/uL Hgb 12.6 L (13.0-17.5) gm/dL MCH 24.3 L (25.0-35.0) pg MCHC 28.2 L (31.0-37.0) g/dL RDW 19.0 H (11.5-15.5) % Plt Count 456 H (150-450) k/uL BUN 48 H (9-20) mg/dL Creatinine 1.30 H (0.66-1.25) mg/dL Glucose 103 H (74-99) mg/dL Calcium 7.8 L (8.4-10.2) mg/dL Alkaline Phosphatase 180 H (38-126) U/L Total Protein 6.0 L (6.3-8.2) g/dL Albumin 2.9 L (3.5-5.0) g/dL Assessment and Plan Plan: 1. Critical limb ischemia left lower extremity with gangrene of the foot and toes with significant vascular ulcers. Dr. Mccoy has scheduled the patient for below the knee amputation for today. Patient was cleared by cardiology. 2. Paroxysmal atrial fibrillation. Continue Toprol-XL 12.5 mg daily. 3. Nonischemic cardiomyopathy. Continue Toprol-XL. Hold Lasix for today. 4. 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 Hold eliquis until after procedure. Patient's last dose of eliquis was on October 14. 5. Polycythemia vera. Hold Hydrea. 6. Hypertension. Hold losartan 25 mg daily, hold Lasix. Continue Toprol-XL. 7. Chronic anemia. Continue ferrous sulfate.. 8. Chronic gout. Continue allopurinol 300 mg daily. 9. Squamous cell skin cancer, stable. 10. Chronic kidney disease stage III. Avoid nephrotoxic agents, hypertension. 11. DVT prophylaxis. Resume eliquis following procedure. 12. GI prophylaxis. Protonix IV. Patient will be admitted to the hospital for a minimum of 2 night stay. Discharge plan: Most likely return home. Impression and plan of care have been directed as dictated by the signing physician. Vianney Velasquez nurse practitioner acting as scribe for signing physi diamond.
[2019-10-20] MEDS ORDERED: IV FLUID CONTINUATION 1,000 ML IV ONE ×2 (11:39→11:54)
[2019-10-20] MEDS ORDERED: LIDOCAINE 1% INJ 10MG/ML (20 ML MDV) ONE (11:45)
[2019-10-20] MEDS ORDERED: KETOROLAC 30 MG/ML 1 ML VIAL ONE (11:45)
[2019-10-20] MEDS ORDERED: ePHEDrine SULFATE/0.9% NACL/PF 50 MG/5 ML SYRINGE IV ONE (11:45)
[2019-10-20] MEDS ORDERED: PHENYLEPHRINE-0.9% NACL SYG 1 MG/10 ML SYRINGE ONE (11:45)
[2019-10-20] MEDS ORDERED: fentaNYL (PF) 50 MCG/ML 2 ML AMP ONE (11:45)
[2019-10-20] MEDS ORDERED: PROPOFOL 10 MG/ML 20 ML VIAL IV ONE (11:45)
[2019-10-20] MEDS ORDERED: SUCCINYLCHOLINE CHLORIDE 100 MG/5 ML SYR IV ONE (11:45)
[2019-10-20] MEDS ORDERED: MIDAZOLAM 2 MG/2 ML VIAL ONE (11:45)
[2019-10-20 11:52] LABS: Glucose,Whole Blood 102 mg/dL (75-99)
--- NOTE | 2019-10-20 12:10 | PN ---
PROGRESS NOTE Mr. Pedroza is an 89-year-old male with history of severe peripheral disease who was found to have severe obstructive disease with gangrene of the left foot. He is scheduled to undergo amputation today. He is feeling well this morning. He is denying any chest pain, his breathing has been stable. He denies any dizziness, palpitation He denies any nausea. He continues to be on metoprolol succinate 12.5 mg daily, vancomycin, piperacillin. PHYSICAL EXAMINATION: Blood pressure 116/60 with a heart rate in the 80s. LUNGS: Clear. HEART: Regular rate and rhythm, S1, S2. No S3 with systolic murmur, no diastolic murmur. ABDOMEN: Soft, nontender. EXTREMITIES: With significant gangrene at the left lower extremities. IMPRESSION: 1. Severe peripheral disease with gangrene of the left foot, scheduled to undergo amputation. 2. Prior history of paroxysmal atrial fibrillation. 3. History of nonischemic cardiomyopathy by testing in the past. 4. History of polycythemia vera. 5. Prior history of deep venous thrombosis. RECOMMENDATION: From the cardiac standpoint, will review the results of echocardiogram. Patient is stable to proceed with his scheduled surgical intervention. I will continue on the beta natalie as present. MMODL / IJN: [id number] /
--- NOTE | 2019-10-20 14:06 | P.OP ---
Description of Procedure: Date: 10/20/2019 Preoperative diagnosis: Gangrene left foot [place] classification 6 Postoperative diagnosis: Same Procedure: Left below-knee amputation Surgeon: Troy Mccoy DO Candy Decorator: Yudelka Link DO Estimated blood loss: 200 Complications: None Condition: Stable Indications: 89-year-old gentleman who has had a left lower extremity chronic wound which has been treated in the wound care center for several months presented to my office secondary to new onset of ischemic toes. He underwent angiogram which demonstrated occlusive disease below the knee extending to his foot. Due to the extent of his wounds and the non-salvageable foot he was scheduled for a left below-knee amputation. Operative narrative: After written and informed consent was obtained the patient all risks benefits and competitions were described the patient is brought to the operative suite and laid in a supine position. The left lower extremity was prepped and draped in the usual sterile fashion after appropriate anesthetic was performed per the anesthesiologist. A timeout was performed in normal fashion antibiotics were administered on the floor. Tends a reasonable the tibial plateau was marked. The calf circumference was then measured and two thirds was utilized for the anterior incision and one third for the posterior flap creation. The incision was marked. The incision was then created with a 10 blade scalpel and deepened through the fascia. This was incised around the level of the incision. The anterior compartment muscles were then divided and the tibial vessels were visualized and suture ligated with 2-0 silk. The lateral compartment musculature was then divided and dissection was carried down to the level of the bone. The periosteal elevator was then used on the tibia and was freed from the periosteal tissues. The same was then performed with the fibula approximately 1-1/2 cm proximal to the tibial resection. Tibia and fibula were then divided with the oscillating saw. The posterior flap was created with amputation knife and bleeding was controlled with suture ligation of the vessels. Cautery was also utilized for hemostasis. The specimen was then removed and handed off for pathology. The wound was then copiously irrigated. The tibia and fibula were then smoothed with a rasp. 2-0 Vicryl was then utilized to approximate the fascia. Skin was re-approximated with colleen. The incision was then cleansed and dressings were placed. Patient all procedure well and was sent to PACU for recovery.
[2019-10-20] MEDS: LACTATED RINGERS 1,000 ML IV SCH ×2 (21:09→21:10)
[2019-10-20] MEDS: ALPRAZolam 0.25 MG TAB PO PRN (21:32)
[2019-10-21] MEDS: PIPERACILLIN-TAZOBACTAM 3.375 GM in SODIUM CHLORIDE 0.9% 100 ML IVPB SCH ×3 (02:17→16:34)
[2019-10-21] MEDS: SODIUM CHLORIDE 0.9% 1,000 ML IV SCH ×2 (02:18→05:18)
[2019-10-21] MEDS: VANCOMYCIN 1,500 MG in SODIUM CHLORIDE 0.9% 250 ML IVPB SCH (06:22)
[2019-10-21 06:32] LABS: Anisocytosis Slight; HCT 39.6 % (39.0-53.0); HGB 10.8 gm/dL (13.0-17.5); Hypochromasia Marked; MCH 23.6 pg (25.0-35.0); MCHC 27.4 g/dL (31.0-37.0); MCV 85.9 fL (80.0-100.0); Mean Platelet Volume 10.1; Platelet Count 564 k/uL (150-450); Poikilocytosis Slight; RDW 18.8 % (11.5-15.5)
[2019-10-21 06:44] LABS: Calcium 7.5 mg/dL (8.4-10.2); Potassium 4.6 mmol/L (3.5-5.1)
[2019-10-21] MEDS: METOPROLOL SUCCINATE (ER) 25 MG TAB.ER.24H PO SCH (08:41)
[2019-10-21] MEDS: FERROUS SULFATE 325 MG TAB PO SCH (08:41)
[2019-10-21] MEDS: ALLOPURINOL 300 MG TAB PO SCH (08:41)
--- NOTE | 2019-10-21 10:25 | P.PN ---
Subjective Progress Note Date: 10/20/19 This is an 89-year-old male patient of Drs. Danielle and Alina Rodriguez. 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 Keating, history of DVTs most recently in June 2019 positive for bilateral lower extremity DVTs of the femoral and popliteal veins. Patient has b een following [facility] for ulcerations to the lateral left lower leg and due to nonhealing, not improving, patient was set up with vascular surgery for further evaluation and possible need for amputation. Dr. Mccoy brought the patient in for aortogram with selective left lower extremity runoffs via right femoral artery access under ultrasound guidance. He was found to have an occluded left anterior tibial and posterior tibial arteries. Moderate atherosclerotic disease of the distal SFA. Dr. Mccoy requested that we admit the patient and he will schedule him for a below the knee amputation tomorrow. We have added a consult for cardiology for preop clearance. Patient is seen today in the postop recovery area. Son has been updated. Patient denies any chest pain, difficulty breathing. Blood pressure 104/50, heart rate in the 80s, afebrile. 92% on room air. Patient will be transferred to the cardiac stepdown unit. Patient started on IV Zosyn and vancomycin. 10/20: Patient seen and examined this morning. Awaiting left BKA with Dr. Tera castro at this time. Patient was seen by Dr. Gonzalez and cleared for surgery from cardiology standpoint. Eliquis remains on hold at this time. Vital signs are stable. Patient is afebrile heart rate is 80 blood pressure is 116/64 pulse ox 95% on room air. Labs were reviewed today. 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 We will continue IV antibiotics at this time. Patient is being followed by PT and OT. 10/21 patient seen this morning sitting up in chair shaving. 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 Mccoy. Vital signs are stable patient has been afebrile pulse rate 77 blood pressure 107/67 satting 98% on room air. Labs were reviewed hemoglobin 10.8 BUN 51 and creatinine 1.58 we'll continue IV hydration at this time. Continue Zosyn antibiotics. Plan for patient to return to [facility] for rehab possibly Friday and will do Covid testing. PT and OT continue to follow with patient. Review of Systems Constitutional: Denies chills, Denies fatigue, Denies fever, Denies lethargy, Denies malaise, Denies poor appetite Eyes: denies blurred vision, denies pain Ears, nose, mouth and throat: Denies dental pain, Denies dysphagia, Denies headache, Denies nasal congestion, Denies nasal discharge, Denies sore throat, Denies vertigo Cardiovascular: Denies chest pain, Denies decreased exercise tolerance, Denies dyspnea on exertion, Denies edema, Denies leg edema, Denies lightheadedness, Denies palpitations, Denies shortness of breath, Denies syncope Respiratory: Denies cough, Denies cough with sputum, Denies dyspnea, Denies hemoptysis, Denies home oxygen, Denies respiratory infections, Denies sleep apnea, Denies wheezing Gastrointestinal: Denies abdominal pain, Denies diarrhea, Denies nausea, Denies vomiting Genitourinary: Denies urinary frequency, Denies urinary retention Musculoskeletal: Denies frequent falls, positive gait dysfunction, Denies muscle weakness, Denies myalgias Integumentary: Reports wounds, Denies pruritus, Denies rash Neurological: Denies change in mentation, Denies change in speech, Denies numbness, Denies seizures, Denies weakness Psychiatric: Denies anxiety, Denies depression Endocrine: Denies fatigue, Denies weight change Objective - Vital Signs Vital signs: Vital Signs Temp 97.5 F L 10/21/19 08:00 Pulse 77 10/21/19 08:00 Resp 16 10/21/19 08:00 BP 107/67 10/21/19 08:00 Pulse Ox 98 10/21/19 08:00 Intake & Output 10/20/19 10/21/19 10/21/19 18:59 06:59 18:59 Intake Total 1625 325 240 Output Total 725 700 Balance 900 -375 240 Weight 85 kg Intake: IV 1300 Intake, IV Titration 325 325 Amount Piperacillin-Tazobactam 3 100 .375 gm In Sodium Chloride 0.9% 100 ml @ 25 mls/hr IVPB Q8HR [facility] Rx# :[id number] Sodium Chloride 0.9% 1, 75 225 000 ml @ 75 mls/hr IV . [id number] [facility] Rx#:[id number] Vancomycin 1,500 mg In 250 Sodium Chloride 0.9% 250 ml @ 125 mls/hr IVPB Q24H [facility] Rx#:[id number] Oral 240 Output: Urine 525 700 Straight 350 Estimated Blood Loss 200 Other: Voiding Method Self-Catheterization Self-Catheterization Self-Catheterization # Bowel Movements 1 - Exam Gen: This is an 89-year-old male patient resting in chair. He appears to be in no acute distress. HEENT: Head is atraumatic, normocephalic. Pupils equal, round. Sclerae is anicteric. NECK: Supple. No JVD. No lymphadenopathy. No thyromegaly. LUNGS: Clear to auscultation. No wheezes or rhonchi. No intercostal retractions . HEART: Regular rate and rhythm. SYS murmur. ABDOMEN: Soft. Bowel sounds are present. No masses. No tenderness. EXTREMITIES: +1 pedal edema on right . Left surgical dressing in place clean dry and intact. NEUROLOGICAL: Patient is awake, alert and oriented x3. Cranial nerves 2 through 12 are grossly intact. - Labs CBC & Chem 7: 10/21/19 06:07 10/21/19 06:07 Labs: Abnormal Lab Results - Last 24 Hours (Table) 10/20/19 10/21/19 10/21/19 Range/Units 11:44 06:07 06:07 WBC 57.0 H* (3.8-10.6) k/uL Hgb 10.8 L (13.0-17.5) gm/dL MCH 23.6 L (25.0-35.0) pg MCHC 27.4 L (31.0-37.0) g/dL RDW 18.8 H (11.5-15.5) % Plt Count 564 H (150-450) k/uL Chloride 110 H (98-107) mmol/L Carbon Dioxide 21 L (22-30) mmol/L BUN 51 H (9-20) mg/dL Creatinine 1.58 H (0.66-1.25) mg/dL POC Glucose (mg/dL) 102 H (75-99) mg/dL Calcium 7.5 L (8.4-10.2) mg/dL Assessment and Plan Plan: 1. Critical limb ischemia left lower extremity with gangrene of the foot and toes with significant vascular ulcers. 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 Continue with postsurgical care. 2. Paroxysmal atrial fibrillation. Continue Toprol-XL 12.5 mg daily. 3. Nonischemic cardiomyopathy. Continue Toprol-XL. Hold Lasix for today. 4. 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 Hold eliquis until after procedure. Patient's last dose of eliquis was on October 14. Plan to restart Eliquis when okay with surgery. 5. Polycythemia vera. Hold Hydrea. 6. Hypertension. Hold losartan 25 mg daily, hold Lasix. Continue Toprol-XL. 7. Chronic anemia. Continue ferrous sulfate.. 8. Chronic gout. Continue allopurinol 300 mg daily. 9. Squamous cell skin cancer, stable. 10. Acute on Chronic kidney disease stage III. Avoid nephrotoxic agents, hypertension. We'll continue with IV hydration. 11. DVT prophylaxis. Resume eliquis following procedure. 12. GI prophylaxis. Protonix IV. Patient will be admitted to the hospital for a minimum of 2 night stay. Discharge plan: Plan to return to [facility] for subacute rehab possibly Friday Impression and plan of care have been directed as dictated by the signing physician. Vianney Velasquez nurse practitioner acting as scribe for signing physician.
--- NOTE | 2019-10-21 11:03 | P.PN ---
Subjective Progress Note Date: 10/21/19 his is an 89-year-old gentleman who follows with Dr. Vigil in the office. He saw him on September [id number]. In August of last year the patient underwent an echocardiogram with Doppler study which revealed mild LV systolic dysfunction, he has moderate tricuspid regurg and severe pulmonary hypertension as well as mild aortic regurgitation. A 24-hour Holter was also performed which did reveal episodes of atrial fibrillation. Johnna scan revealed nonischemic cardiomyopathy with an ejection fraction of 35%. During the office visit in September of last Dr. Vigil discussed anticoagulation with the patient and his , they decided to take only an aspirin daily. He also discussed the possibility of cardiac catheterization, they opted for medical therapy at that time. Patient denies any history of hypertension, no diabetes, no hyperlipidemia, nonsmoker, rarely does he drink alcohol. 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 Patient presented to the hospital because of critical limb ischemia of the left lower extremity, gangrene of the forefoot and toes with chronic venous and arterial ulcerations. He underwent an aortogram with selective left lower extremity runoffs via right femoral artery access under ultrasound guidance by Dr. Mccoy. He was found to have an occluded left anterior tibial and posterior tibial arteries. Moderate atherosclerotic disease of the distal SFA. Patient will require a left below the knee amputation. Cardiology was asked for preop clearance. Patient denies any recent chest discomfort and overall he states his breathing has been stable. Blood pressure 104/50, heart rate in the 80s, afebrile. 92% on room air. Laboratory data, these labs are performed on October 14, white blood cell count 63.5, hemoglobin 12.8, platelet count 506. Sodium 138, potassium 4.5, BUN 46, creatinine 1.3. No lab data has been obtained today as of yet. No chest x-ray. No EKG. At the time of my examination, patient is lying comfortably in bed, denies any chest discomfort, no difficulty in breathing, no palpitations. He is having some discomfort in his left foot. 10/21/2019 Patient underwent a left below the knee amputation yesterday. He was seen and examined today, no complaints overall. Hemodynamically stable. Objective - Vital Signs Vital signs: Vital Signs Temp 97.5 F L 10/21/19 08:00 Pulse 77 10/21/19 08:00 Resp 16 10/21/19 08:00 BP 107/67 10/21/19 08:00 Pulse Ox 98 10/21/19 08:00 Intake & Output 10/20/19 10/21/19 10/21/19 18:59 06:59 18:59 Intake Total 1625 325 240 Output Total 725 700 Balance 900 -375 240 Weight 85 kg Intake: IV 1300 Intake, IV Titration 325 325 Amount Piperacillin-Tazobactam 3 100 .375 gm In Sodium Chloride 0.9% 100 ml @ 25 mls/hr IVPB Q8HR [facility] Rx# :[id number] Sodium Chloride 0.9% 1, 75 225 000 ml @ 75 mls/hr IV . [id number] [facility] Rx#:[id number] Vancomycin 1,500 mg In 250 Sodium Chloride 0.9% 250 ml @ 125 mls/hr IVPB Q24H [facility] Rx#:[id number] Oral 240 Output: Urine 525 700 Straight 350 Estimated Blood Loss 200 Other: Voiding Method Self-Catheterization Self-Catheterization Self-Catheterization # Bowel Movements 1 - Exam PHYSICAL EXAMINATION: GENERAL: 89-year-old gentleman in no acute distress at the time of my examination HEENT: Head is atraumatic, normocephalic. Pupils equal, round. Sclera anicteric. Conjunctiva are clear. Mucous membranes of the mouth are moist. Neck is supple. There is no elevated jugular venous pressure.] No carotid bruit is heard. HEART EXAMINATION: Heart S1 and S2 with diastolic murmur is heard CHEST EXAMINATION: Lungs are clear to auscultation and precussion. No chest wall tenderness is noted on palpation or with deep breathing. ABDOMEN: Soft, nontender. Bowel sounds are heard. No organomegaly noted. EXTREMITIES: Doppler to 1+ peripheral pulses to the right lower extremity. Left BKA, dressing in place. NEUROLOGIC [patient is awake, alert and oriented 3 - Labs CBC & Chem 7: 10/21/19 06:07 10/21/19 06:07 Labs: Abnormal Lab Results - Last 24 Hours (Table) 10/20/19 10/21/19 10/21/19 Range/Units 11:44 06:07 06:07 WBC 57.0 H* (3.8-10.6) k/uL Hgb 10.8 L (13.0-17.5) gm/dL MCH 23.6 L (25.0-35.0) pg MCHC 27.4 L (31.0-37.0) g/dL RDW 18.8 H (11.5-15.5) % Plt Count 564 H (150-450) k/uL Chloride 110 H (98-107) mmol/L Carbon Dioxide 21 L (22-30) mmol/L BUN 51 H (9-20) mg/dL Creatinine 1.58 H (0.66-1.25) mg/dL POC Glucose (mg/dL) 102 H (75-99) mg/dL Calcium 7.5 L (8.4-10.2) mg/dL Assessment and Plan Plan: Assessment and plan #1 critical limb ischemia of the left lower extremity, gangrene of the forefoot and toes with chronic venous and arterial are serrations, status post angiogram with lower extremity runoffs, patient has occluded left anterior tibial and posterior tibial arteries, moderate atherosclerotic disease in the distal SFA and the recommendation is to go for a left below the knee amputation. #2 paroxysmal atrial fibrillation, not on anticoagulation, only on a baby aspirin daily #3 cardiomyopathy, as per Johnna scan stress test performed one year ago which revealed an ejection fraction of 35% #4 polycythemia vera #5 history of DVT Plan We will review the echocardiogram with Doppler study. From our perspective, patient may be discharged once cleared by surgeon, he will be followed up in the office as an outpatient. We will follow him along with you now on an as-needed basis only, please don't hesitate to call with any questions. DNP note has been reviewed, I agree with a documented findings and plan of care. Patient was seen and examined.
--- NOTE | 2019-10-21 11:38 | ECHOF ---
Referral Reason:pre op MEASUREMENTS -------- HEIGHT: 180.3 cm WEIGHT: 83.9 kg BP: 116/64 RVIDd: 3.3 cm (< 3.3) IVSd: 1.5 cm (0.6 - 1.1) LVIDd: 5.3 cm (3.9 - 5.3) LVPWd: 1.3 cm (0.6 - 1.1) IVSs: 1.5 cm LVIDs: 4.9 cm LVPWs: 1.3 cm LAESV Index (A-L): 48.93 ml/m Ao Diam: 3.6 cm (2.0 - 3.7) AV Cusp: 0.7 cm (1.5 - 2.6) LA Diam: 4.9 cm (2.7 - 3.8) MV EXCURSION: 23.254 mm (> 18.000) MV EF SLOPE: 211 mm/s (70 - 150) EPSS: 1.1 cm MV E Scottie: 0.79 m/s MV DecT: 217 ms MV A Scottie: 0.75 m/s MV E/A Ratio: 1.06 AV maxP.53 mmHg AV meanP.71 mmHg AR PHT: 233 ms RAP: 20.00 mmHg RVSP: 66.18 mmHg TAPSE: 11.54 mm FINDINGS -------- Sinus rhythm. This was a technically good study. The left ventricular size is normal. There is moderate concentric left ventricular hypertrophy. T here is severe global hypokinesis of LV . Overall left ventricular systolic function is severely im paired with, an EF between 20 - 25 %. Increased LAP Grade 3 Diastolic Dysfunction. The right ventricle is mildly enlarged. The right ventricular systolic function is severely impaire d. LA is severely dilated >40 ml/m2 The right atrial size is normal. Aortic valve is trileaflet and is severely thickened. Trace amount of aortic regurgitation. Ther e is [id number] aortic stenosis present. Peak/mean gradient across the Aortic Valve is 23.5 3mmHg / 14.71mmHg. The mitral valve is normal. The mitral valve leaflets are mildly thickened. Mild mitral annular c alcification present. Mild mitral regurgitation is present. The tricuspid valve appears structurally normal. Moderate tricuspid regurgitation present. There is severe pulmonary hypertension. The right ventricular systolic pressure, as measured by Doppler, is 66.18mmHg. There is no pulmonic regurgitation present. The aortic root size is normal. The inferior vena cava is dilated with no significant inspiratory collapse which is consistent estima telma right atrial pressure of >20 mmHg. There is no pericardial effusion. CONCLUSIONS -------- 1. Sinus rhythm. 2. This was a technically good study. 3. The left ventricular size is normal. 4. There is moderate concentric left ventricular hypertrophy. 5. There is severe global hypokinesis of LV . 6. Overall left ventricular systolic function is severely impaired with, an EF between 20 - 25 %. 7. Increased LAP Grade 3 Diastolic Dysfunction. 8. The right ventricle is mildly enlarged. 9. The right ventricular systolic function is severely impaired. 10. LA is severely dilated >40 ml/m2 11. The right atrial size is normal. 12. Aortic valve is trileaflet and is severely thickened. 13. Trace amount of aortic regurgitation. 14. There is [id number] aortic stenosis present. 15. Peak/mean gradient across the Aortic Valve is 23.53mmHg / 14.71mmHg. 16. The mitral valve is normal. 17. The mitral valve leaflets are mildly thickened. 18. Mild mitral annular calcification present. 19. Mild mitral regurgitation is present. 20. The tricuspid valve appears structurally normal. 21. Moderate tricuspid regurgitation present. 22. There is severe pulmonary hypertension. 23. The right ventricular systolic pressure, as measured by Doppler, is 66.18mmHg. 24. There is no pulmonic regurgitation present. 25. The aortic root size is normal. 26. The inferior vena cava is dilated with no significant inspiratory collapse which is consistent es timated right atrial pressure of >20 mmHg. 27. There is no pericardial effusion. EXPLOSIVE OPERATOR GRENADE: Kaylyn Benites RDCS
--- NOTE | 2019-10-21 13:09 | P.PN ---
Subjective Progress Note Date: 10/21/19 Patient is evaluated today in follow-up care status post left below the knee amputation. Patient indicates that he feels well and that his pain is well controlled. He is eating without nausea or abdominal pain. He has been seen by the prosthesis and a cast is been applied to the wound. Surgically the patient is stable and awaiting rehab placement. Objective - Vital Signs Vital signs: Vital Signs Temp 97.5 F L 10/21/19 08:00 Pulse 77 10/21/19 08:00 Resp 16 10/21/19 08:00 BP 107/67 10/21/19 08:00 Pulse Ox 98 10/21/19 08:00 Intake & Output 10/20/19 10/21/19 10/21/19 18:59 06:59 18:59 Intake Total 1625 325 240 Output Total 725 700 Balance 900 -375 240 Weight 85 kg Intake: IV 1300 Intake, IV Titration 325 325 Amount Piperacillin-Tazobactam 3 100 .375 gm In Sodium Chloride 0.9% 100 ml @ 25 mls/hr IVPB Q8HR [facility] Rx# :[id number] Sodium Chloride 0.9% 1, 75 225 000 ml @ 75 mls/hr IV . [id number] [facility] Rx#:[id number] Vancomycin 1,500 mg In 250 Sodium Chloride 0.9% 250 ml @ 125 mls/hr IVPB Q24H [facility] Rx#:[id number] Oral 240 Output: Urine 525 700 Straight 350 Estimated Blood Loss 200 Other: Voiding Method Self-Catheterization Self-Catheterization Self-Catheterization # Bowel Movements 1 - Constitutional General appearance: Present: cooperative, no acute distress - Respiratory Respiratory: bilateral: CTA - Cardiovascular Rhythm: regular - Labs CBC & Chem 7: 10/21/19 06:07 10/21/19 06:07 Labs: Abnormal Lab Results - Last 24 Hours (Table) 10/21/19 10/21/19 Range/Units 06:07 06:07 WBC 57.0 H* (3.8-10.6) k/uL Hgb 10.8 L (13.0-17.5) gm/dL MCH 23.6 L (25.0-35.0) pg MCHC 27.4 L (31.0-37.0) g/dL RDW 18.8 H (11.5-15.5) % Plt Count 564 H (150-450) k/uL Chloride 110 H (98-107) mmol/L Carbon Dioxide 21 L (22-30) mmol/L BUN 51 H (9-20) mg/dL Creatinine 1.58 H (0.66-1.25) mg/dL Calcium 7.5 L (8.4-10.2) mg/dL
[2019-10-21] MEDS: ALPRAZolam 0.25 MG TAB PO PRN (22:42)
[2019-10-22] MEDS: PIPERACILLIN-TAZOBACTAM 3.375 GM in SODIUM CHLORIDE 0.9% 100 ML IVPB SCH ×3 (01:00→18:03)
[2019-10-22] MEDS: LACTATED RINGERS 1,000 ML IV SCH ×2 (03:28→20:44)
[2019-10-22] MEDS: SODIUM CHLORIDE 0.9% 1,000 ML IV SCH ×3 (03:29→09:40)
[2019-10-22] MEDS: VANCOMYCIN 1,500 MG in SODIUM CHLORIDE 0.9% 250 ML IVPB SCH (05:50)
[2019-10-22] MEDS: ALLOPURINOL 300 MG TAB PO SCH (07:55)
[2019-10-22] MEDS: FERROUS SULFATE 325 MG TAB PO SCH (07:55)
[2019-10-22] MEDS: METOPROLOL SUCCINATE (ER) 25 MG TAB.ER.24H PO SCH (07:55)
[2019-10-22 08:54] LABS: Anisocytosis Slight; HCT 46.3 % (39.0-53.0); HGB 12.2 gm/dL (13.0-17.5); Hypochromasia Marked; MCH 22.7 pg (25.0-35.0); MCHC 26.4 g/dL (31.0-37.0); MCV 86.1 fL (80.0-100.0); Mean Platelet Volume 10.4; Platelet Count 753 k/uL (150-450); Poikilocytosis Slight; RBC 5.38 m/uL (4.30-5.90); RDW 19.3 % (11.5-15.5)
[2019-10-22 08:57] LABS: WBC 63.9 k/uL (3.8-10.6)
[2019-10-22] MEDS ORDERED: HYDROXYUREA 500 MG CAP PO SCH (09:00)
[2019-10-22 09:06] LABS: Calcium 7.9 mg/dL (8.4-10.2); Potassium 5.2 mmol/L (3.5-5.1)
[2019-10-22] MEDS ORDERED: FUROSEMIDE 10 MG/ML 4 ML VIAL IV STA (09:08)
[2019-10-22] MEDS: APIXABAN 2.5 MG TABLET PO SCH ×2 (09:39→21:26)
--- NOTE | 2019-10-22 10:48 | P.PN ---
Subjective Progress Note Date: 10/22/19 his is an 89-year-old gentleman who follows with Dr. Vigil in the office. He saw him on September 292018. In August of last year the patient underwent an echocardiogram with Doppler study which revealed mild LV systolic dysfunction, he has moderate tricuspid regurg and severe pulmonary hypertension as well as mild aortic regurgitation. A 24-hour Holter was also performed which did reveal episodes of atrial fibrillation. Johnna scan revealed nonischemic cardiomyopathy with an ejection fraction of 35%. During the office visit in September of last Dr. Vigil discussed anticoagulation with the patient and his , they decided to take only an aspirin daily. He also discussed the possibility of cardiac catheterization, they opted for medical therapy at that time. Patient denies any history of hypertension, no diabetes, no hyperlipidemia, nonsmoker, rarely does he drink alcohol. 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 Patient presented to the hospital because of critical limb ischemia of the left lower extremity, gangrene of the forefoot and toes with chronic venous and arterial ulcerations. He underwent an aortogram with selective left lower extremity runoffs via right femoral artery access under ultrasound guidance by Dr. Mccoy. He was found to have an occluded left anterior tibial and posterior tibial arteries. Moderate atherosclerotic disease of the distal SFA. Patient will require a left below the knee amputation. Cardiology was asked for preop clearance. Patient denies any recent chest discomfort and overall he states his breathing has been stable. Blood pressure 104/50, heart rate in the 80s, afebrile. 92% on room air. Laboratory data, these labs are performed on October 14, white blood cell count 63.5, hemoglobin 12.8, platelet count 506. Sodium 138, potassium 4.5, BUN 46, creatinine 1.3. No lab data has been obtained today as of yet. No chest x-ray. No EKG. At the time of my examination, patient is lying comfortably in bed, denies any chest discomfort, no difficulty in breathing, no palpitations. He is having some discomfort in his left foot. 10/21/2019 Patient underwent a left below the knee amputation yesterday. He was seen and examined today, no complaints overall. Hemodynamically stable. 10/22/2019 Patient seen and examined this morning, did not sleep all that well through the night last night and overall today doesn't feel as well as she did yesterday. He is complaining of some mild shortness of breath and orthopnea. He has considerable increase in the amount of edema in his right lower extremity. Objective - Vital Signs Vital signs: Vital Signs Temp 98.0 F 10/22/19 07:46 Pulse 83 10/22/19 07:46 Resp 18 10/22/19 07:46 BP 127/77 10/22/19 07:46 Pulse Ox 95 10/22/19 07:46 Intake & Output 10/21/19 10/22/19 10/22/19 18:59 06:59 18:59 Intake Total 240 Output Total 450 1000 Balance -210 -1000 Weight 83 kg Intake: Oral 240 Output: Urine 450 1000 Straight 450 700 Other: Voiding Method Self-Catheterization Self-Catheterization # Bowel Movements 1 - Exam PHYSICAL EXAMINATION: GENERAL: 89-year-old gentleman in no acute distress at the time of my examination HEENT: Head is atraumatic, normocephalic. Pupils equal, round. Sclera anicteric. Conjunctiva are clear. Mucous membranes of the mouth are moist. Neck is supple. There is no elevated jugular venous pressure.] No carotid bruit is heard. HEART EXAMINATION: Heart S1 and S2 with diastolic murmur is heard CHEST EXAMINATION: Lungs reveal diminished air entry bilaterally . No chest wall tenderness is noted on palpation or with deep breathing. ABDOMEN: Soft, nontender. Bowel sounds are heard. No organomegaly noted. EXTREMITIES: Doppler to 1+ peripheral pulses to the right lower extremity with 3+ pitting edema. Left BKA, dressing in place. NEUROLOGIC [patient is awake, alert and oriented 3 - Labs CBC & Chem 7: 10/22/19 08:04 10/22/19 08:04 Labs: Abnormal Lab Results - Last 24 Hours (Table) 10/22/19 10/22/19 Range/Units 08:04 08:04 WBC 63.9 H* (3.8-10.6) k/uL Hgb 12.2 L (13.0-17.5) gm/dL MCH 22.7 L (25.0-35.0) pg MCHC 26.4 L (31.0-37.0) g/dL RDW 19.3 H (11.5-15.5) % Plt Count 753 H (150-450) k/uL Potassium 5.2 H (3.5-5.1) mmol/L Chloride 108 H (98-107) mmol/L BUN 49 H (9-20) mg/dL Creatinine 1.59 H (0.66-1.25) mg/dL Glucose 105 H (74-99) mg/dL Calcium 7.9 L (8.4-10.2) mg/dL Assessment and Plan Plan: Assessment and plan #1 critical limb ischemia of the left lower extremity, gangrene of the forefoot and toes with chronic venous and arterial are serrations, status post angiogram with lower extremity runoffs, patient has occluded left anterior tibial and posterior tibial arteries, moderate atherosclerotic disease in the distal SFA and the patient is s/p left below the knee amputation. #2 paroxysmal atrial fibrillation, not on anticoagulation, only on a baby aspirin daily #3 cardiomyopathy, as per Johnna scan stress test performed one year ago which revealed an ejection fraction of 35% #4 polycythemia vera #5 history of DVT #6 systolic congestive heart failure acute on chronic Plan Echocardiogram with Doppler study was reviewed which revealed an ejection fraction of 20-25%. We will discontinue the IV fluids at. Give the patient 40 mg of IV Lasix now and daily. We will also increase his dose of beta natalie. Repeat a chest x-ray. Monitor the intake and output. Plan for possible discharge home in 24 hours if stable. DNP note has been reviewed, I agree with a documented findings and plan of care. Patient was seen and examined.
--- NOTE | 2019-10-22 11:13 | XR ---
EXAMINATION TYPE: XR chest 1V portable DATE OF EXAM: 10/22/2019 Comparison: Correlation CT 06/11/2019 Clinical History: 89-year-old male shortness of breath, CHF Findings: Heart is mildly enlarged. Diffuse interstitial density and vascular prominence. Small effusions with bibasilar opacity. Unchanged post traumatic or congenital right upper rib deformity resulting in foca l opacity. Impression: 1. CHF with pulmonary vascular congestion. 2. Small effusions with adjacent atelectasis and/or consolidation.
--- NOTE | 2019-10-22 11:50 | P.PN ---
Subjective Progress Note Date: 10/20/19 This is an 89-year-old male patient of Drs. Danielle and Alina Rodriguez. 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 Keating, history of DVTs most recently in June 2019 positive for bilateral lower extremity DVTs of the femoral and popliteal veins. Patient has b een [facility] ulcerations to the lateral left lower leg and due to nonhealing, not improving, patient was set up with vascular surgery for further evaluation and possible need for amputation. Dr. Mccoy brought the patient in for aortogram with selective left lower extremity runoffs via right femoral artery access under ultrasound guidance. He was found to have an occluded left anterior tibial and posterior tibial arteries. Moderate atherosclerotic disease of the distal SFA. Dr. Mccoy requested that we admit the patient and he will schedule him for a below the knee amputation tomorrow. We have added a consult for cardiology for preop clearance. Patient is seen today in the postop recovery area. Son has been updated. Patient denies any chest pain, difficulty breathing. Blood pressure 104/50, heart rate in the 80s, afebrile. 92% on room air. Patient will be transferred to the cardiac stepdown unit. Patient started on IV Zosyn and vancomycin. 10/19: Patient seen and examined this morning. Awaiting left BKA with Dr. Tera castro at this time. Patient was seen by Dr. Gonzalez and cleared for surgery from cardiology standpoint. Eliquis remains on hold at this time. Vital signs are stable. Patient is afebrile heart rate is 80 blood pressure is 116/64 pulse ox 95% on room air. Labs were reviewed today. 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 We will continue IV antibiotics at this time. Patient is being followed by PT and OT. 10/20 patient seen this morning sitting up in chair shaving. 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 Mccoy. Vital signs are stable patient has been afebrile pulse rate 77 blood pressure 107/67 satting 98% on room air. Labs were reviewed hemoglobin 10.8 BUN 51 and creatinine 1.58 we'll continue IV hydration at this time. Continue Zosyn antibiotics. Plan for patient to return to [facility] for rehab possibly Friday and will do Covid testing. PT and OT continue to follow with patient. 10/21: Patient is hemodynamically stable is complaining of a little bit more shortness of breath this morning. Cardiology seen patient, plan for possible discharge tomorrow to [facility] is stable. IV fluids were stopped Lasix IV was started and cardiology increased metoprolol. May resume Eliquis as okayed with surgery. Ejection fraction 20-25%. Labs were reviewed hemoglobin 12.2 BUN 49 creatinine 1.59. Vitals are stable. Patient remains afebrile heart rate 83, blood pressure 122/77, pulse ox 95% on room air. Repeat chest x-ray for the morning. Patient remains on Zosyn IV antibiotics. Objective - Vital Signs Vital signs: Vital Signs Temp 98.0 F 10/22/19 07:46 Pulse 83 10/22/19 07:46 Resp 18 10/22/19 07:46 BP 127/77 10/22/19 07:46 Pulse Ox 95 10/22/19 07:46 Intake & Output 10/21/19 10/22/19 10/22/19 18:59 06:59 18:59 Intake Total 240 Output Total 450 1000 Balance -210 -1000 Weight 83 kg Intake: Oral 240 Output: Urine 450 1000 Straight 450 700 Other: Voiding Method Self-Catheterization Self-Catheterization Self-Catheterization # Bowel Movements 1 - Exam Review of Systems Constitutional: Denies chills, Denies fatigue, Denies fever, Denies lethargy, Denies malaise, Denies poor appetite Eyes: denies blurred vision, denies pain Ears, nose, mouth and throat: Denies dental pain, Denies dysphagia, Denies headache, Denies nasal congestion, Denies nasal discharge, Denies sore throat, Denies vertigo Cardiovascular: Denies chest pain, Denies decreased exercise tolerance, Denies dyspnea on exertion, Denies edema, Denies leg edema, Denies lightheadedness, Denies palpitations, Denies shortness of breath, Denies syncope Respiratory: Denies cough, Denies cough with sputum, Denies hemoptysis, Denies home oxygen, Denies respiratory infections, Denies sleep apnea, Denies wheezing. Mild shortness of breath Gastrointestinal: Denies abdominal pain, Denies diarrhea, Denies nausea, Denies vomiting Genitourinary: Denies urinary frequency, Denies urinary retention Musculoskeletal: Denies frequent falls, positive gait dysfunction, Denies muscle weakness, Denies myalgias Integumentary: Reports wounds, Denies pruritus, Denies rash Neurological: Denies change in mentation, Denies change in speech, Denies numbness, Denies seizures, Denies weakness Psychiatric: Denies anxiety, Denies depression Endocrine: Denies fatigue, Denies weight change Gen: This is an 89-year-old male appears comfortable.. He appears to be in no acute distress. HEENT: Head is atraumatic, normocephalic. Pupils equal, round. Sclerae is anicteric. NECK: Supple. No JVD. No lymphadenopathy. No thyromegaly. LUNGS: Clear to auscultation. No wheezes or rhonchi. No intercostal retractions. HEART: Regular rate and rhythm. SYS murmur. ABDOMEN: Soft. Bowel sounds are present. No masses. No tenderness. EXTREMITIES: +2 pedal edema on right . Left surgical dressing in place clean dry and intact. NEUROLOGICAL: Patient is awake, alert and oriented x3. Cranial nerves 2 through 12 are grossly intact. - Labs CBC & Chem 7: 10/22/19 08:04 10/22/19 08:04 Labs: Abnormal Lab Results - Last 24 Hours (Table) 10/22/19 10/22/19 Range/Units 08:04 08:04 WBC 63.9 H* (3.8-10.6) k/uL Hgb 12.2 L (13.0-17.5) gm/dL MCH 22.7 L (25.0-35.0) pg MCHC 26.4 L (31.0-37.0) g/dL RDW 19.3 H (11.5-15.5) % Plt Count 753 H (150-450) k/uL Potassium 5.2 H (3.5-5.1) mmol/L Chloride 108 H (98-107) mmol/L BUN 49 H (9-20) mg/dL Creatinine 1.59 H (0.66-1.25) mg/dL Glucose 105 H (74-99) mg/dL Calcium 7.9 L (8.4-10.2) mg/dL Assessment and Plan Plan: 1. Critical limb ischemia left lower extremity with gangrene of the foot and toes with significant vascular ulcers. 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 Continue with postsurgical care. 2. Paroxysmal atrial fibrillation. Metoprolol increased to 25 mg by mouth daily 3. Nonischemic cardiomyopathy. Lasix resumed 4. 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 Other quests restarted 5. Polycythemia vera. Hydrea. 6. Hypertension. Continue metoprolol 7. Chronic anemia. Continue ferrous sulfate.. 8. Chronic gout. Continue allopurinol 300 mg daily. 9. Squamous cell skin cancer, stable. 10. Acute on Chronic kidney disease stage III. Avoid nephrotoxic agents, hypertension. 11. DVT prophylaxis. I will request resumed 12. GI prophylaxis. Protonix IV. Patient will be admitted to the hospital for a minimum of 2 night stay. Discharge plan: Plan to return to [facility] for subacute rehab possibly Friday if stable. Impression and plan of care have been directed as dictated by the signing physician. Vianney Velasquez nurse practitioner acting as scribe for signing physician.
--- NOTE | 2019-10-22 13:10 | P.PN ---
Subjective Patient seen and evaluated by Dr. Link. He is postoperative day #2 left low the knee amputation. Pain is well controlled and he is currently in the process of being transferred to rehab facility. Blood pressure 127/77 heart rate 83 afebrile maintaining oxygen saturation on room air. Laboratory data reviewed, WBC 63, hemoglobin 12.2, platelets 753, sodium 141, potassium 5.2, creatinine 1.59. Currently maintained on zosyn and vancomycin for antibiotic coverage. Cardiology is diuresing the patient with IV lasix. GENERAL: Well-appearing, well-nourished and in no acute distress. EXTREMITIES: Pitting edema on the right with doppler pulse; left surgical site dressing clean, dry and intact with no significant drainage. ASSESSMENT Gangrene left foot s/p left below the knee amputation. POD #2 Polycythemia vera PLAN Stable for discharge to rehab facility from a surgical perspective. Ongoing medical management of co-morbid conditions. Follow up with Dr. Mccoy. Nurse Practitioner note has been reviewed, I agree with a documented findings and plan of care. Patient was seen and examined. Objective - Vital Signs Vital signs: Vital Signs Temp 98.0 F 10/22/19 07:46 Pulse 83 10/22/19 07:46 Resp 18 10/22/19 07:46 BP 127/77 10/22/19 07:46 Pulse Ox 95 10/22/19 07:46 Intake & Output 10/21/19 10/22/19 10/22/19 18:59 06:59 18:59 Intake Total 240 Output Total 450 1000 Balance -210 -1000 Weight 83 kg Intake: Oral 240 Output: Urine 450 1000 Straight 450 700 Other: Voiding Method Self-Catheterization Self-Catheterization # Bowel Movements 1 - Labs CBC & Chem 7: 10/22/19 08:04 10/22/19 08:04 Labs: Abnormal Lab Results - Last 24 Hours (Table) 10/22/19 10/22/19 Range/Units 08:04 08:04 WBC 63.9 H* (3.8-10.6) k/uL Hgb 12.2 L (13.0-17.5) gm/dL MCH 22.7 L (25.0-35.0) pg MCHC 26.4 L (31.0-37.0) g/dL RDW 19.3 H (11.5-15.5) % Plt Count 753 H (150-450) k/uL Potassium 5.2 H (3.5-5.1) mmol/L Chloride 108 H (98-107) mmol/L BUN 49 H (9-20) mg/dL Creatinine 1.59 H (0.66-1.25) mg/dL Glucose 105 H (74-99) mg/dL Calcium 7.9 L (8.4-10.2) mg/dL
--- NOTE | 2019-10-22 14:55 | P.DS ---
Providers Date of admission: 10/19/19 13:42 Expected date of discharge: 10/23/19 Attending physician: Gera Danielle Consults: 10/19/19 09:48 Consult Physician Routine Consulting Provider: Vanesa Gonzalez Consult Reason/Comments: sx clearance for BKA ramone Fri. Do you want consulting provider notified?: Yes 10/19/19 10:45 Consult Physician Routine Consulting Provider: Troy Mccoy Consult Reason/Comments: gangrene left foot Do you want consulting provider notified?: Already Contacted Primary care physician: [facility] Course: This is an 89-year-old male patient of Drs. Danielle and Alina Rodriguez. 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 Keating, history of DVTs most recently in June 2019 positive for bilateral lower extremity DVTs of the femoral and popliteal veins. Patient has been [facility] ulcerations to the lateral left lower leg and due to nonhealing, not improving, patient was set up with vascular surgery for further evaluation and possible need for amputation. Dr. Mccoy brought the patient in for aortogram with selective left lower extremity runoffs via right femoral artery access under ultrasound guidance. He was found to have an occluded left anterior tibial and posterior tibial arteries. Moderate atherosclerotic disease of the distal SFA. Dr. Mccoy requested that we admit the patient and he will schedule him for a below the knee amputation tomorrow. We have added a consult for cardiology for preop clearance. Patient is seen today in the postop recovery area. Son has been updated. Patient denies any chest pain, difficulty breathing. Blood pressure 104/50, heart rate in the 80s, afebrile. 92% on room air. Patient will be transferred to the cardiac stepdown unit. Patient started on IV Zosyn and vancomycin. 10/19: Patient seen and examined this morning. Awaiting left BKA with Dr. Mccoy at this time. Patient was seen by Dr. Gonzalez and cleared for surgery from cardiology standpoint. Eliquis remains on hold at this time. Vital signs are stable. Patient is afebrile heart rate is 80 blood pressure is 116/64 pulse ox 95% on room air. Labs were reviewed today. 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 We will continue IV antibiotics at this time. Patient is being followed by PT and OT. 10/20 patient seen this morning sitting up in chair shaving. 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 Mccoy. Vital signs are stable patient has been afebrile pulse rate 77 blood pressure 107/67 satting 98% on room air. Labs were reviewed hemoglobin 10.8 BUN 51 and creatinine 1.58 we'll continue IV hydration at this time. Continue Zosyn antibiotics. Plan for patient to return to [facility] for rehab possibly Friday and will do Covid testing. PT and OT continue to follow with patient. 10/21: Patient is hemodynamically stable is complaining of a little bit more shortness of breath this morning. Cardiology seen patient, plan for possible discharge tomorrow to [facility] is stable. IV fluids were stopped Lasix IV was started and cardiology increased metoprolol. May resume Eliquis as okayed with surgery. Ejection fraction 20-25%. Labs were reviewed hemoglobin 12.2 BUN 49 creatinine 1.59. Vitals are stable. Patient remains afebrile heart rate 83, blood pressure 122/77, pulse ox 95% on room air. Repeat chest x-ray for the morning. Patient remains on Zosyn IV antibiotics. Discharge diagnoses: 1. Critical limb ischemia left lower extremity with gangrene of the foot and toes with significant vascular ulcers. Left BKA was done on 10/19. 2. Paroxysmal atrial fibrillation. 3. Nonischemic cardiomyopathy. 4. 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 5. Polycythemia vera. 6. Hypertension. 7. Chronic anemia. 8. Chronic gout. 9. Squamous cell skin cancer, stable. 10. Acute on Chronic kidney disease stage III. Discharge plan: to [facility] on Friday. Impression and plan of care have been directed as dictated by the signing physician. Nicki Kapadia nurse practitioner acting as scribe for signing physician. Plan - Discharge Summary Discharge Rx Participant: Yes New Discharge Prescriptions: New Doxycycline Hyclate 100 mg PO BID #28 tab Continue Hydroxyurea [Hydrea] 500 mg PO Q2D Ferrous Sulfate [Iron (65 MG Elemental)] 325 mg PO DAILY Allopurinol [Zyloprim] 300 mg PO DAILY Apixaban [Eliquis] 2.5 mg PO BID Metoprolol Succinate [Toprol XL] 12.5 mg PO DAILY Vit C/E/Zn/Coppr/Lutein/Zeaxan [Preservision Areds 2 Softgel] 1 each PO DAILY Losartan [Cozaar] 25 mg PO DAILY #30 Furosemide [Lasix] 10 mg PO DAILY #0 Furosemide [Lasix] 20 mg PO DAILY #0 Potassium Citrate [Potassium Citrate ER] 10 meq PO TID #0 Discharge Medication List Allopurinol [Zyloprim] 300 mg PO DAILY 10/15/19 [History] Apixaban [Eliquis] 2.5 mg PO BID 10/15/19 [History] Ferrous Sulfate [Iron (65 MG Elemental)] 325 mg PO DAILY 10/15/19 [History] Hydroxyurea [Hydrea] 500 mg PO Q2D 10/15/19 [History] Metoprolol Succinate [Toprol XL] 12.5 mg PO DAILY 10/15/19 [History] Vit C/E/Zn/Coppr/Lutein/Zeaxan [Preservision Areds 2 Softgel] 1 each PO DAILY 10/15/19 [History] Doxycycline Hyclate 100 mg PO BID #28 tab 10/22/19 [Rx] Furosemide [Lasix] 10 mg PO DAILY #0 10/22/19 [Rx] Furosemide [Lasix] 20 mg PO DAILY #0 10/22/19 [Rx] Losartan [Cozaar] 25 mg PO DAILY #30 10/22/19 [Rx] Potassium Citrate [Potassium Citrate ER] 10 meq PO TID #0 10/22/19 [Rx] Follow up Appointment(s)/Referral(s): Troy Mccoy DO [STAFF PHYSICIAN] - 1 Week Gera Danielle MD [Primary Care Provider] - 1 Week (at [facility]) Discharge Disposition: TRANSFER TO SNF/ECF
[2019-10-23] MEDS: PIPERACILLIN-TAZOBACTAM 3.375 GM in SODIUM CHLORIDE 0.9% 100 ML IVPB SCH ×2 (00:50→09:10)
[2019-10-23] MEDS ORDERED: VANCOMYCIN TROUGH DUE 1 EACH MISC MISCELLANE ONE (05:00)
[2019-10-23 05:41] LABS: Anisocytosis Slight; HGB 13.1 gm/dL (13.0-17.5); Hypochromasia Marked; MCHC 27.2 g/dL (31.0-37.0); MCV 88.1 fL (80.0-100.0); Mean Platelet Volume 10.6; Platelet Count 718 k/uL (150-450); Poikilocytosis Slight; RBC 5.45 m/uL (4.30-5.90); RDW 18.9 % (11.5-15.5)
[2019-10-23 05:43] LABS: WBC 54.8 k/uL (3.8-10.6)
[2019-10-23 05:53] LABS: Calcium 8.1 mg/dL (8.4-10.2); Potassium 5.1 mmol/L (3.5-5.1)
[2019-10-23] MEDS: VANCOMYCIN 1,500 MG in SODIUM CHLORIDE 0.9% 250 ML IVPB SCH (06:53)
[2019-10-23 08:59] VITALS: TEMP 97.9
[2019-10-23] MEDS ORDERED: METOPROLOL SUCCINATE (ER) 25 MG TAB.ER.24H PO SCH (09:00)
[2019-10-23] MEDS ORDERED: FUROSEMIDE 10 MG/ML 4 ML VIAL IV SCH (09:00)
[2019-10-23] MEDS: ALLOPURINOL 300 MG TAB PO SCH (09:11)
[2019-10-23] MEDS: APIXABAN 2.5 MG TABLET PO SCH (09:11)
[2019-10-23] MEDS: FERROUS SULFATE 325 MG TAB PO SCH (09:11)
--- NOTE | 2019-10-23 09:20 | P.DS ---
Providers Date of admission: 10/19/19 13:42 Attending physician: Gera Danielle Consults: 10/19/19 09:48 Consult Physician Routine Consulting Provider: Vanesa Gonzalez Consult Reason/Comments: sx clearance for BKA ramone Fri. Do you want consulting provider notified?: Yes 10/19/19 10:45 Consult Physician Routine Consulting Provider: Troy Mccoy Consult Reason/Comments: gangrene left foot Do you want consulting provider notified?: Already Contacted [facility] Course: This is an 89-year-old male patient of Drs. Danielle and Alina Rodriguez. 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 Keating, history of DVTs most recently in June 2019 positive for bilateral lower extremity DVTs of the femoral and popliteal veins. [facility] has [facility] ulcerations to the lateral left lower leg and due to nonhealing, not improving, patient was set up with vascular surgery for further evaluation and possible need for amputation. Dr. Mccoy brought the patient in for aortogram with selective left lower extremity runoffs via right femoral artery access under ultrasound guidance. He was found to have an occluded left anterior tibial and posterior tibial arteries. Moderate atherosclerotic disease of the distal SFA. Dr. Mccoy requested that we admit the patient and he will schedule him for a below the knee amputation tomorrow. We have added a consult for cardiology for preop clearance. Patient is seen today in the postop recovery area. Son has been updated. Patient denies any chest pain, difficulty breathing. Blood pressure 104/50, heart rate in the 80s, afebrile. 92% on room air. Patient will be transferred to the cardiac stepdown unit. Patient started on IV Zosyn and vancomycin. 10/19: Patient seen and examined this morning. Awaiting left BKA with Dr. Mccoy at this time. Patient was seen by Dr. Gonzalez and cleared for surgery from cardiology standpoint. Eliquis remains on hold at this time. Vital signs are stable. Patient is afebrile heart rate is 80 blood pressure is 116/64 pulse ox 95% on room air. Labs were reviewed today. 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 We will continue IV antibiotics at this time. Patient is being followed by PT and OT. 10/20 patient seen this morning sitting up in chair shaving. 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 Mccoy. Vital signs are stable patient has been afebrile pulse rate 77 blood pressure 107/67 satting 98% on room air. Labs were reviewed hemoglobin 10.8 BUN 51 and creatinine 1.58 we'll continue IV hydration at this time. Continue Zosyn antibiotics. Plan for patient to return to [facility] for rehab possibly Friday and will do Covid testing. PT and OT continue to follow with patient. 10/21: Patient is hemodynamically stable is complaining of a little bit more shortness of breath this morning. Cardiology seen patient, plan for possible discharge tomorrow to [facility] is stable. IV fluids were stopped Lasix IV was started and cardiology increased metoprolol. May resume Eliquis as okayed with surgery. Ejection fraction 20-25%. Labs were reviewed hemoglobin 12.2 BUN 49 creatinine 1.59. Vitals are stable. Patient remains afebrile heart rate 83, bl ood pressure 122/77, pulse ox 95% on room air. Repeat chest x-ray for the morning. Patient remains on Zosyn IV antibiotics. 10/22: Patient is doing very well hemodynamically stable, his vital signs are much better. Patient will be seeing cardiology today to be clear to go to [facility]. His antibiotic were changed to oral Doxy no more IV antibiotics, he is back on his oral beta natalie and anticoagulation. Patient was on IV Lasix for the last 24 hours and be switched to oral Lasix 40 mg a day. Patient's pain is well controlled currently will be going to [facility] with no substance control for pain. Patient is very stable to be discharged today. Objective - Vital Signs Vital signs: Vital Signs Temp 98.0 F 10/22/19 07:46 Pulse 83 10/22/19 07:46 Resp 18 10/22/19 07:46 BP 127/77 10/22/19 07:46 Pulse Ox 95 10/22/19 07:46 Intake & Output 10/21/19 10/22/19 10/22/19 18:59 06:59 18:59 Intake Total 240 Output Total 450 1000 Balance -210 -1000 Weight 83 kg Intake: Oral 240 Output: Urine 450 1000 Straight 450 700 Other: Voiding Method Self-Catheterization Self-Catheterization Self-Catheterization # Bowel Movements 1 - Exam Review of Systems Constitutional: Denies chills, Denies fatigue, Denies fever, Denies lethargy, Denies malaise, Denies poor appetite Eyes: denies blurred vision, denies pain Ears, nose, mouth and throat: Denies dental pain, Denies dysphagia, Denies headache, Denies nasal congestion, Denies nasal discharge, Denies sore throat, Denies vertigo Cardiovascular: Denies chest pain, Denies decreased exercise tolerance, Denies dyspnea on exertion, Denies edema, Denies leg edema, Denies lightheadedness, Denies palpitations, Denies shortness of breath, Denies syncope Respiratory: Denies cough, Denies cough with sputum, Denies hemoptysis, Denies home oxygen, Denies respiratory infections, Denies sleep apnea, Denies wheezing. Mild shortness of breath Gastrointestinal: Denies abdominal pain, Denies diarrhea, Denies nausea, Denies vomiting Genitourinary: Denies urinary frequency, Denies urinary retention Musculoskeletal: Denies frequent falls, positive gait dysfunction, Denies muscle weakness, Denies myalgias Integumentary: Reports wounds, Denies pruritus, Denies rash Neurological: Denies change in mentation, Denies change in speech, Denies numbness, Denies seizures, Denies weakness Psychiatric: Denies anxiety, Denies depression Endocrine: Denies fatigue, Denies weight change Gen: This is an 89-year-old male appears comfortable.. He appears to be in no acute distress. HEENT: Head is atraumatic, normocephalic. Pupils equal, round. Sclerae is anicteric. NECK: Supple. No JVD. No lymphadenopathy. No thyromegaly. LUNGS: Clear to auscultation. No wheezes or rhonchi. No intercostal retractions. HEART: Regular rate and rhythm. SYS murmur. ABDOMEN: Soft. Bowel sounds are present. No masses. No tenderness. EXTREMITIES: +2 pedal edema on right . Left surgical dressing in place clean dry and intact. NEUROLOGICAL: Patient is awake, alert and oriented x3. Cranial nerves 2 through 12 are grossly intact. - Labs CBC & Chem 7: 10/22/19 08:04 10/22/19 08:04 Labs: Abnormal Lab Results - Last 24 Hours (Table) 10/22/19 10/22/19 Range/Units 08:04 08:04 WBC 63.9 H* (3.8-10.6) k/uL Hgb 12.2 L (13.0-17.5) gm/dL MCH 22.7 L (25.0-35.0) pg MCHC 26.4 L (31.0-37.0) g/dL RDW 19.3 H (11.5-15.5) % Plt Count 753 H (150-450) k/uL Potassium 5.2 H (3.5-5.1) mmol/L Chloride 108 H (98-107) mmol/L BUN 49 H (9-20) mg/dL Creatinine 1.59 H (0.66-1.25) mg/dL Glucose 105 H (74-99) mg/dL Calcium 7.9 L (8.4-10.2) mg/dL Assessment and Plan Plan: 1. Critical limb ischemia left lower extremity with gangrene of the foot and toes with significant vascular ulcers. 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 Continue with postsurgical care. 2. Paroxysmal atrial fibrillation. Metoprolol increased to 25 mg by mouth daily 3. Nonischemic cardiomyopathy. Lasix resumed 4. 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 Other quests restarted 5. Polycythemia vera. Hydrea. 6. Hypertension. Continue metoprolol 7. Chronic anemia. Continue ferrous sulfate.. 8. Chronic gout. Continue allopurinol 300 mg daily. 9. Squamous cell skin cancer, stable. 10. Acute on Chronic kidney disease stage III. Avoid nephrotoxic agents, hypertension. Patient is very stable will be transferred to [facility] today, his kidney function and A. fib along with fluid overload is better control. Patient was switched to oral antibiotics which will be continue on for the next 2 weeks. Plan - Discharge Summary Discharge Rx Participant: Yes New Discharge Prescriptions: New Doxycycline Hyclate 100 mg PO BID #28 tab ALPRAZolam [Xanax] 0.25 mg PO RT-Q8H PRN #12 tab PRN Reason: Mild Anxiety Continue Hydroxyurea [Hydrea] 500 mg PO Q2D Ferrous Sulfate [Iron (65 MG Elemental)] 325 mg PO DAILY Allopurinol [Zyloprim] 300 mg PO DAILY Apixaban [Eliquis] 2.5 mg PO BID Metoprolol Succinate [Toprol XL] 12.5 mg PO DAILY Vit C/E/Zn/Coppr/Lutein/Zeaxan [Preservision Areds 2 Softgel] 1 each PO DAILY Losartan [Cozaar] 25 mg PO DAILY #30 Potassium Citrate [Potassium Citrate ER] 10 meq PO TID #0 Changed Furosemide [Lasix] 40 mg PO DAILY #0 Discontinued Furosemide [Lasix] 10 mg PO DAILY Furosemide [Lasix] 20 mg PO DAILY Discharge Medication List Allopurinol [Zyloprim] 300 mg PO DAILY 10/15/19 [History] Apixaban [Eliquis] 2.5 mg PO BID 10/15/19 [History] Ferrous Sulfate [Iron (65 MG Elemental)] 325 mg PO DAILY 10/15/19 [History] Hydroxyurea [Hydrea] 500 mg PO Q2D 10/15/19 [History] Metoprolol Succinate [Toprol XL] 12.5 mg PO DAILY 10/15/19 [History] Vit C/E/Zn/Coppr/Lutein/Zeaxan [Preservision Areds 2 Softgel] 1 each PO DAILY 10/15/19 [History] Doxycycline Hyclate 100 mg PO BID #28 tab 10/22/19 [Rx] Losartan [Cozaar] 25 mg PO DAILY #30 10/22/19 [Rx] Potassium Citrate [Potassium Citrate ER] 10 meq PO TID #0 10/22/19 [Rx] ALPRAZolam [Xanax] 0.25 mg PO RT-Q8H PRN #12 tab 10/23/19 [Rx] Furosemide [Lasix] 40 mg PO DAILY #0 10/23/19 [Rx] Follow up Appointment(s)/Referral(s): Troy Mccoy DO [STAFF PHYSICIAN] - 1 Week Gera Danielle MD [Primary Care Provider] - 1 Week (at [facility]) Discharge Disposition: TRANSFER TO SNF/ECF
[2019-10-23 13:20] VITALS: BP 113/62; PULSE 69; RESP 18
--- NOTE | 2019-10-26 07:28 | CDI ---
Documentation Clarification Form Date: 10/26/19 From: Venessa Staley Phone: If you have a question about this query, please contact Jemima Bro, Piping Supervisor at [phone] between 8am and 5pm. Admit Date: 10/19/19 Discharge Date:10/23/19 Patient Name: Saran Pedroza Visit Number: [id number] ATTENTION: The Clinical Documentation Specialists (CDI) and [facility] Coding Staff appreciate your assistance in clarifying documentation. Please respond to the clarification below the line at the bottom and electronically sign. The CDI & [facility] Coding staff will review the response and follow-up if needed. Please note: Queries are made part of the Legal Health Record. If you have any questions, please contact the author of this message via ITS. Dear Dr. Mccoy The patient presented with the following: Critical limb ischemia left lower extremity with gangrene of the foot and toes with significant vascular ulcers. History/Risk Factors: Atherosclerosis of the lower extremity arteries, hypertension, Clinical Indicators: Gangrene, critical limb ischemia, ulcers of left foot Vital Signs:T. 99.1, P. 92, R. 18, BP 116/69 Treatment: Left below-knee amputation In your professional opinion, can you please clarify the level of the below-knee amputation? High (proximal) Mid Low (distal) Other, please specify Unable to determine Mid MTDD
--- NOTE | 2019-10-27 13:29 | CDI ---
Documentation Clarification Form Date: 10/27/2019 01:11:40 PM From: Birdie Sarmiento RN CCDS Admit Date: 10/19/2019 01:42:00 PM Patient Name: Saran Pedroza Visit Number: [id number] Discharge Date: 10/23/2019 02:14:00 PM ATTENTION: The Clinical Documentation Specialists (CDI) and [facility] Coding Staff appreciate your assistance in clarifying documentation. Please respond to the clarification below the line at the bottom and electronically sign. The CDI & [facility] Coding staff will review the response and follow-up if needed. Please note: Queries are made part of the Legal Health Record. If you have any questions, please contact the author of this message via ITS. Dr. Gera Danielle Coding guidelines do not allow coding professionals to code based on laboratory results; therefore, your input is requested. The COVID-19 test obtained on 10/20 was reported as Negative on 10/20 Per the Discharge Summary 10/22, 10/21 Plan for patient to return to [facility] for rehab possibly Friday and will l do COVID testing 89-year-old male presents to the [facility] as a direct admission for a below the knee amputation. Medical history Occluded left anterior tibial and posterior tibial arteries. Nonischemic cardiomyopathy, paroxysmal atrial fibrillation and Polycythemia Clinical Indicators Admission to Hospital for elective procedure. 10/21 CXR: Diffuse interstitial density and vascular prominence. Small effusions with bibasilar opacity. 10/18 VS At Admission: BP 116/69 T: 99.1, P:92, R 18 , Sat 97% on room air 10/18 WBC 57.9 Treatment In order to capture the severity of condition, please clarify the COVID-19 status: xx COVID-19 ruled out Other, please specify MTDD
== END 2019-10-23 14:14 | DRG 239 ==
LOC: CATHCVL 06:51 → 3SCARD 09:05 → CATHCVL 13:42
PROVIDERS: ADMIT Internal Medicine Geriatric Medicine; ATTEND Internal Medicine Geriatric Medicine
PROC: B41D1ZZ Fluoroscopy of Aorta and Bilateral Lower Extremity Arteries using Low Osmolar Contrast (ICD-10-PCS; 2019-10-19 09:00)
PROC: 0Y6J0Z2 Detachment at Left Lower Leg, Mid, Open Approach (ICD-10-PCS; principal; 2019-10-20 12:00)
DX: I70.262 Atherosclerosis of native arteries of extremities with gangrene, left leg (principal); I50.23 Acute on chronic systolic (congestive) heart failure; C91.10 Chronic lymphocytic leukemia of B-cell type not having achieved remission; I13.0 Hypertensive heart and chronic kidney disease with heart failure and stage 1 through stage 4 chronic kidney disease, or unspecified chronic kidney disease; I42.8 Other cardiomyopathies; N17.9 Acute kidney failure, unspecified; I82.503 Chronic embolism and thrombosis of unspecified deep veins of lower extremity, bilateral; I27.20 Pulmonary hypertension, unspecified; L97.529 Non-pressure chronic ulcer of other part of left foot with unspecified severity; N18.3 Chronic kidney disease, stage 3 (moderate); Z11.59 Encounter for screening for other viral diseases; I99.8 Other disorder of circulatory system; C44.92 Squamous cell carcinoma of skin, unspecified; D45 Polycythemia vera; D64.9 Anemia, unspecified; H91.90 Unspecified hearing loss, unspecified ear; I07.1 Rheumatic tricuspid insufficiency; I48.0 Paroxysmal atrial fibrillation; M1A.9XX0 Chronic gout, unspecified, without tophus (tophi); N40.0 Benign prostatic hyperplasia without lower urinary tract symptoms; Z79.01 Long term (current) use of anticoagulants; Z79.899 Other long term (current) drug therapy; Z87.442 Personal history of urinary calculi; Z86.14 Personal history of Methicillin resistant Staphylococcus aureus infection; Z98.42 Cataract extraction status, left eye; Z98.41 Cataract extraction status, right eye; Z82.79 Family history of other congenital malformations, deformations and chromosomal abnormalities
CPT/HCPCS: 36247; 71045; 75625; 75716; 76937; 80048; 80053; 80202; 83880; 85027; 87635; 93306

== ENCOUNTER 2019-12-07 09:43 | Day surgery (SDC) | payer MEDICARE ==
[2019-12-06 12:49] VITALS: BMI 18.6
[~2019-12-07 09:43] MED LIST changes: -ASPIRIN 325 MG TAB PO STA; +DEXAMETHASONE SOD PHOSPHATE 10 MG/ML 1 ML VIAL IV ONE; +HYDROmorphone 0.5 MG/0.5 ML SYRINGE IVP PRN; +LACTATED RINGERS 1,000 ML IV SCH; +LIDOCAINE 1% (10MG/ML) FOR IV START INTRADERMA PRN; +MIDAZOLAM 2 MG/2 ML VIAL IV PRN; +ONDANSETRON 4 MG/2 ML VIAL IVP ONE; -SODIUM CHLORIDE 0.9% 1,000 ML in EMPTY BAG 1 BAG IV ONE; -ZOLPIDEM 5 MG TAB PO PRN
[2019-12-07] MEDS ORDERED: SUCCINYLCHOLINE CHLORIDE 100 MG/5 ML SYR IV ONE (12:25)
[2019-12-07] MEDS ORDERED: PHENYLEPHRINE-0.9% NACL SYG 1 MG/10 ML SYRINGE ONE (12:25)
[2019-12-07] MEDS ORDERED: PROPOFOL 10 MG/ML 20 ML VIAL IV ONE (12:25)
[2019-12-07] MEDS ORDERED: MIDAZOLAM 2 MG/2 ML VIAL ONE (12:25)
--- NOTE | 2019-12-07 13:21 | P.GSHP ---
History of Present Illness H&P Date: 12/07/19 Chief Complaint: bka wound 89-year-old gentleman with history of left BKA presents today for debridement of his wound over his left BKA site. He developed some eschar which needs to be removed. He denies any fevers, chills, chest pain or shortness of breath. - Review of Systems All systems: negative (What is mentioned in HPI past medical history) Past Medical History Past Medical History: Atrial Fibrillation, Blood Disorder, Cancer, Deep Vein Thrombosis (DVT), Hearing Disorder / Deafness, Hypertension, Prostate Disorder, Renal Disease, Skin Disorder Additional Past Medical History / Comment(s): CMP. BPH. Hx of DVT'S. Squamous cell skin cancer. Polycythemia Vera, Receives Phelbotomy's w/ DR Keating. Wears Thigh high TEDS. Hx of kidney stones, Gout. Has NHW LT Below knee amputation. Hearing aids. Chronic kidney disease stage III. History of Any Multi-Drug Resistant Organisms: MRSA, Other MDRO Date of last positivie culture/infection: 08/11/19 MDRO Source:: Right Leg Past Surgical History: Hernia Repair, Joint Replacement Additional Past Surgical History / Comment(s): TOTAL LEFT KNEE, INGUINAL HERNIA. CATARACTS. LITHOTRIPSY/KIDNEY STONES PROCEDURES, COLONOSCOPY. Lt Below Knee amputation 10/20/19 Past Anesthesia/Blood Transfusion Reactions: No Reported Reaction Smoking Status: Never smoker - Past Family History Mother Family Medical History: No Reported History Additional Family Medical History / Comment(s): Mother of old age. Father Additional Family Medical History / Comment(s): Father at a young age from an accident. Brother(s) Additional Family Medical History / Comment(s): Patient had 3 brothers one has of old age and one is alive at age 91 and one at 94 with no major medical problems. Sister(s) Additional Family Medical History / Comment(s): Patient has one sister and she is with history of Down syndrome. Son(s) Additional Family Medical History / Comment(s): Patient has 2 sons with no major medical problems. Medications and Allergies Home Medications Medication Instructions Recorded Confirmed Type Allopurinol [Zyloprim] 300 mg PO DAILY 10/15/19 12/07/19 History Apixaban [Eliquis] 2.5 mg PO BID 10/15/19 12/07/19 History Ferrous Sulfate [Iron (65 MG 325 mg PO DAILY 10/15/19 12/07/19 History Elemental)] Hydroxyurea [Hydrea] 500 mg PO Q48H 10/15/19 12/07/19 History Metoprolol Succinate [Toprol XL] 12.5 mg PO DAILY 10/15/19 12/07/19 History Vit C/E/Zn/Coppr/Lutein/Zeaxan 1 each PO DAILY 10/15/19 12/07/19 History [Preservision Areds 2 Softgel] Losartan [Cozaar] 25 mg PO DAILY #30 10/22/19 12/07/19 Rx Acetaminophen [Tylenol Arthritis] 650 mg PO Q4H PRN 12/06/19 12/07/19 History Furosemide [Lasix] 40 mg PO BID 12/06/19 12/07/19 History Liquacel 30 ml PO BID 12/06/19 12/07/19 History Potassium Citrate [Potassium 10 meq PO DAILY 12/06/19 12/07/19 History Citrate ER] diphenhydrAMINE [Benadryl] 25 mg PO Q6H PRN 12/06/19 12/07/19 History Allergies Allergy/AdvReac Type Severity Reaction Status Date / Time No Known Allergies Allergy Verified 12/07/19 09:51 Surgical - Exam Vital Signs Temp Pulse Resp BP Pulse Ox 97.5 F L 77 16 103/62 97 12/07/19 09:58 12/07/19 09:58 12/07/19 09:58 12/07/19 09:58 12/07/19 09:58 Left BKA with dark eschar and dehiscence noted at the incision line. Underneath seems to be good bleeding tissues without any signs of infection. - General well developed, no distress - Eyes PERRL, normal ocular movement - ENT normal pinna, normal nares - Respiratory normal expansion - Cardiovascular Rhythm: regular - Abdomen Abdomen: soft Assessment and Plan Assessment: #1 left BKA wound Plan: To the OR for excision debridement of the left BKA wound.
--- NOTE | 2019-12-07 13:25 | P.OP ---
Date of Procedure: 12/07/19 Preoperative Diagnosis: Left BKA wound Postoperative Diagnosis: Same Procedure(s) Performed: Excisional debridement of left BKA wound Anesthesia: WILLY Surgeon: Troy Mccoy Estimated Blood Loss (ml): 5 Pathology: none sent Condition: stable Disposition: PACU Indications for Procedure: 89-year-old gentleman with history of left lower extremity gangrene with history of BKA presents to the operating room for debridement of a BKA wound. After the end dictation he developed some eschar overlying the incision sites where there was a slight dehiscence. There was some ischemic changes noted and he presents today for debridement of these areas. Description of Procedure: After written informed consent was obtained the patient all risks benefits competitions were described the patient about the operative suite and laid in supine position. The area of the left BKA site was prepped and draped in usual sterile fashion after appropriate anesthetic was performed per the anesthesiologist. A timeout was performed normal fashion antibiotics were admin istered prior to incision. There is a large area of eschar noted at the bottom surface of the below-knee amputation site. This was removed with a 10 blade scalpel. Once this was removed to the area of wound was then debrided with a curet. All tissue was removed and good bleeding subcutaneous tissues were noted. There is no fibrinous tissue or signs of infection. The wound itself measured 14 x 10cm with a depth to the subcutaneous tissue. The area was then copiously irrigated and dressed with Opticell, 4x4's and Kerlix. The patient tolerated procedure well and was sent to PACU for recovery. Plan - Discharge Summary Discharge Rx Participant: Yes New Discharge Prescriptions: No Action Hydroxyurea [Hydrea] 500 mg PO Q48H Ferrous Sulfate [Iron (65 MG Elemental)] 325 mg PO DAILY Allopurinol [Zyloprim] 300 mg PO DAILY Apixaban [Eliquis] 2.5 mg PO BID Metoprolol Succinate [Toprol XL] 12.5 mg PO DAILY Vit C/E/Zn/Coppr/Lutein/Zeaxan [Preservision Areds 2 Softgel] 1 each PO DAILY Losartan [Cozaar] 25 mg PO DAILY #30 diphenhydrAMINE [Benadryl] 25 mg PO Q6H PRN PRN Reason: Itching Potassium Citrate [Potassium Citrate ER] 10 meq PO DAILY Furosemide [Lasix] 40 mg PO BID Liquacel 30 ml PO BID Acetaminophen [Tylenol Arthritis] 650 mg PO Q4H PRN PRN Reason: Pain Discharge Medication List Allopurinol [Zyloprim] 300 mg PO DAILY 10/15/19 [History] Apixaban [Eliquis] 2.5 mg PO BID 10/15/19 [History] Ferrous Sulfate [Iron (65 MG Elemental)] 325 mg PO DAILY 10/15/19 [History] Hydroxyurea [Hydrea] 500 mg PO Q48H 10/15/19 [History] Metoprolol Succinate [Toprol XL] 12.5 mg PO DAILY 10/15/19 [History] Vit C/E/Zn/Coppr/Lutein/Zeaxan [Preservision Areds 2 Softgel] 1 each PO DAILY 10/15/19 [History] Losartan [Cozaar] 25 mg PO DAILY #30 10/22/19 [Rx] Acetaminophen [Tylenol Arthritis] 650 mg PO Q4H PRN 12/06/19 [History] Furosemide [Lasix] 40 mg PO BID 12/06/19 [History] Liquacel 30 ml PO BID 12/06/19 [History] Potassium Citrate [Potassium Citrate ER] 10 meq PO DAILY 12/06/19 [History] diphenhydrAMINE [Benadryl] 25 mg PO Q6H PRN 12/06/19 [History] Follow up Appointment(s)/Referral(s): Troy Mccoy DO [STAFF PHYSICIAN] - 2 Weeks Activity/Diet/Wound Care/Special Instructions: Chelsi to the wound bed daily. Discharge Disposition: TRANSFER TO SNF/ECF
[2019-12-07 13:26] VITALS: TEMP 98.2
[2019-12-07 13:33] VITALS: RESP 16
[2019-12-07 14:44] VITALS: BP 97/54; PULSE 76
== END 2019-12-07 14:57 ==
LOC: OR 09:43
PROVIDERS: ATTEND Surgery
DX: T81.89XA Other complications of procedures, not elsewhere classified, initial encounter (principal); L98.8 Other specified disorders of the skin and subcutaneous tissue; T87.81 Dehiscence of amputation stump; I99.8 Other disorder of circulatory system; I48.91 Unspecified atrial fibrillation; D45 Polycythemia vera; C44.92 Squamous cell carcinoma of skin, unspecified; L98.499 Non-pressure chronic ulcer of skin of other sites with unspecified severity; I73.9 Peripheral vascular disease, unspecified; H91.90 Unspecified hearing loss, unspecified ear; I12.9 Hypertensive chronic kidney disease with stage 1 through stage 4 chronic kidney disease, or unspecified chronic kidney disease; N18.3 Chronic kidney disease, stage 3 (moderate); I42.9 Cardiomyopathy, unspecified; N40.0 Benign prostatic hyperplasia without lower urinary tract symptoms; M10.9 Gout, unspecified; Z86.718 Personal history of other venous thrombosis and embolism; Z87.442 Personal history of urinary calculi; Z86.19 Personal history of other infectious and parasitic diseases; Z89.512 Acquired absence of left leg below knee; Z79.899 Other long term (current) drug therapy; Z79.01 Long term (current) use of anticoagulants; Z98.890 Other specified postprocedural states; Z97.4 Presence of external hearing-aid; Z86.14 Personal history of Methicillin resistant Staphylococcus aureus infection; Z96.652 Presence of left artificial knee joint; Z98.41 Cataract extraction status, right eye; Z98.42 Cataract extraction status, left eye; Z82.49 Family history of ischemic heart disease and other diseases of the circulatory system; Z82.79 Family history of other congenital malformations, deformations and chromosomal abnormalities
CPT/HCPCS: 11042; 11045 ×6; J2250; J1100; J0690; J2405; J2370; J0330; J2704

== ENCOUNTER 2020-02-01 11:07 | Inpatient (IN) | payer MEDICARE ==
[~2020-02-01 11:07] MED LIST changes: -DEXAMETHASONE SOD PHOSPHATE 10 MG/ML 1 ML VIAL IV ONE; -LACTATED RINGERS 1,000 ML IV SCH; -LIDOCAINE 1% (10MG/ML) FOR IV START INTRADERMA PRN; -ONDANSETRON 4 MG/2 ML VIAL IVP ONE
[2020-02-01] MEDS: LACTATED RINGERS 1,000 ML IV SCH ×4 (11:41→15:56)
[2020-02-01] MEDS ORDERED: LIDOCAINE 1% (10MG/ML) FOR IV START INTRADERMA ONE (11:41)
[2020-02-01] MEDS ORDERED: fentaNYL (PF) 50 MCG/ML 2 ML AMP ONE (12:09)
[2020-02-01] MEDS ORDERED: MIDAZOLAM 2 MG/2 ML VIAL ONE (12:09)
[2020-02-01] MEDS ORDERED: KETAMINE 10 MG/ML 20 ML VIAL ONE (12:09)
[2020-02-01] MEDS ORDERED: PROPOFOL 10 MG/ML 20 ML VIAL IV ONE (12:09)
--- NOTE | 2020-02-01 20:32 | P.OP ---
Date of Procedure: 02/01/20 Preoperative Diagnosis: Left below knee amputation chronic wound Postoperative Diagnosis: same Procedure(s) Performed: 1. Excisional debridement of the left below knee amputation wound and skin substitute placement' 2. Wound vac placement Implants: epifix skin substitute placement 16x6cm Anesthesia: MAC Surgeon: Troy Mccoy Estimated Blood Loss (ml): 10 Pathology: none sent Condition: stable Disposition: PACU Indications for Procedure: 89 year old male with history of left BKA secondary to gangrene to the left lower extremity presents for debridement of a chronic wound at the BKA site and skin substitute placement. Patient has been treating this wound for several months without improvement. Operative Findings: Eschar with fibrinous tissue and exposed tendon. Good granulation tissue throughout Description of Procedure: After written and informed consent the patient was brought to the operative suite and laid in a supine position. The area of the left BKA site was prepped and draped in usual sterile fashion after appropriate anesthetic was performed per anesthesia. Timeout was performed. Excisional debridement with a 10 blade scalpel was then performed down to bleeding tissues. Exposed tendon was excised and wound was irrigated with antibiotic solution. Once all necrotic tissue was removed and good healthy tissue encountered the skin substitute was then placed in usual fashion within the entire wound. The wound bed measured 16v51k3.5cm. Once the wound was covered the epifix was covered with adaptic which was secured with steri strips. A black sponge was then placed and wound vac was placed in usual fashion. The patient tolerated the procedure well.
--- NOTE | 2020-02-01 23:12 | P.CONS ---
History of Present Illness - Reason for Consult Consult date: 02/01/20 Medical management Requesting physician: Troy Mccoy - Chief Complaint Excisional debridement of left below-knee amputation, nonhealing stump, A. - History of Present Illness 89-year-old male one of my office patient of known very well who had left below- knee amputation done by Dr. Mccoy done in 10/20/2019 patient ended up going to [facility] for rehab has been seen by the wound clinic since, developed to have nonhealing stump with significant drainage more ischemic tissue. Was seen Dr. Mccoy again brought to the hospital today for elective debridement and wound VAC on the side of surgery. Surgical intervention was done today with no complication. Patient was admitted to the floor after surgery his alert awake having no difficulty in breathingand shortness of breath and pain is well controlled this time. Patient most likely will be going back to [facility] tomorrow. Review of Systems CONSTITUTIONAL: Well-developed no acute respiratory distress. EYES: No icterus sclerae, no conjunctivitis. EARS, NOSE, MOUTH, THROAT, and FACE: No sore throat, lymphadenopathy, carotid bruits or deformity. RESPIRATORY: Mild shortness of breath cough wheezes and fluid overload. CARDIOVASCULAR: Mild CHF, A. fib with palpitation with slight dyspnea. GASTROINTESTINAL: No Abd pain, Nausea or vomiting, no Diarrhea or constipation, No GI Bleed, no distention or masses. GENITOURINARY: Negative for Hematuria or UTI, no kidney stones. INTEGUMENT/BREAST: Nonhealing incision from stump done in September post debridement and wound VAC placement on the edge of the stump area. HEMATOLOGIC/LYMPHATIC: Negative for bleed or purpura. MUSCULOSKELTAL: Negative for Myalgia or arthralgia. NEURLOGICAL: No LOC, Sz or syncope, blurred vision dizziness or abnormality.. BEHAVIORAL/PSYCH: Negative. ENDOCRINE: Negative. Past Medical History Past Medical History: Atrial Fibrillation, Blood Disorder, Cancer, Deep Vein Thrombosis (DVT), Hearing Disorder / Deafness, Prostate Disorder Additional Past Medical History / Comment(s): BPH, HX OF DVT'S , SQUAMOUS CELL SKIN CANCER., POLYCYTHEMIA VERA,, HX OF KIDNEY STONES., wheelchair, TLINGIT & HAIDA-USES HEARING AIDS, "low bp", gout, hx anemia History of Any Multi-Drug Resistant Organisms: MRSA, Other MDRO Year Discovered:: 01/16/20 MDRO Source:: left leg Past Surgical History: Hernia Repair, Joint Replacement Additional Past Surgical History / Comment(s): TOTAL LEFT KNEE, INGUINAL HERNIA., SHAGGY CATARACTS., LITHOTRIPSY AND KIDNEY STONES PROCEDURES, COLONOSCOPY, left below knee amputation 09/2019, then debridement fo stump November 2019 Past Anesthesia/Blood Transfusion Reactions: No Reported Reaction Past Psychological History: Depression Additional Psychological History / Comment(s): occ loss of short term memory per son- states pt signs his own consents Smoking Status: Never smoker Past Alcohol Use History: Occasional Additional Past Alcohol Use History / Comment(s): . Past Drug Use History: None Reported - Past Family History Mother Family Medical History: No Reported History Additional Family Medical History / Comment(s): . Father Additional Family Medical History / Comment(s): Father at a young age from an accident. Brother(s) Additional Family Medical History / Comment(s): Patient had 3 brothers one has of old age and one is alive at age 91 and one at 94 with no major medical problems. Sister(s) Additional Family Medical History / Comment(s): Patient has one sister and she is with history of Down syndrome. Son(s) Additional Family Medical History / Comment(s): Patient has 2 sons with no major medical problems. Medications and Allergies Home Medications Medication Instructions Recorded Confirmed Type Apixaban [Eliquis] 2.5 mg PO BID 10/15/19 02/01/20 History Ferrous Sulfate [Iron (65 MG 325 mg PO 1700 10/15/19 02/01/20 History Elemental)] Hydroxyurea [Hydrea] 500 mg PO Q48H 10/15/19 02/01/20 History Metoprolol Succinate [Toprol XL] 12.5 mg PO DAILY 10/15/19 02/01/20 History Vit C/E/Zn/Coppr/Lutein/Zeaxan 1 each PO DAILY 10/15/19 02/01/20 History [Preservision Areds 2 Softgel] allopurinoL [Zyloprim] 300 mg PO DAILY 10/15/19 02/01/20 History Losartan [Cozaar] 25 mg PO DAILY #30 10/22/19 02/01/20 Rx Potassium Citrate [Potassium 10 meq PO 1700 12/06/19 02/01/20 History Citrate ER] Furosemide [Lasix] 80 mg PO DAILY 01/31/20 02/01/20 History Meropenem [Merrem] 1 gm IVPB Q8H 01/31/20 02/01/20 History Vancomycin 500 mg IVPB Q24HR 01/31/20 02/01/20 History Allergies Allergy/AdvReac Type Severity Reaction Status Date / Time No Known Allergies Allergy Verified 02/01/20 11:31 Physical Exam Vitals: Vital Signs Temp Pulse Pulse Resp BP BP BP 02/01/20 19:05 97.8 F 16 95/57 02/01/20 15:50 98.4 F 64 18 102/59 02/01/20 14:45 73 16 112/63 02/01/20 14:26 71 16 104/55 02/01/20 14:11 74 16 89/59 02/01/20 13:56 80 16 97/54 02/01/20 13:41 66 16 95/50 02/01/20 13:26 59 L 16 104/53 02/01/20 13:11 97.5 F L 67 16 124/93 02/01/20 11:22 98.0 F 71 16 95/56 Pulse Ox 02/01/20 19:05 94 L 02/01/20 15:50 96 02/01/20 14:45 93 L 02/01/20 14:26 92 L 02/01/20 14:11 92 L 02/01/20 13:56 92 L 02/01/20 13:41 99 02/01/20 13:26 100 02/01/20 13:11 96 02/01/20 11:22 95 Intake and Output 02/01/20 02/01/20 02/01/20 06:59 14:59 22:59 Intake Total 400 Output Total 10 Balance 390 Intake: IV 400 Output: Estimated Blood Loss 10 Other: Voiding Method Self-Catheterization # Bowel Movements 1 Weight 64.86 kg 64.86 kg General Appearance: Alert, cooperative, no distress, elderly Stanley for his age. Neck HEENT: Supple, no lymphadenopathy, no thyroid enlargement, no carotid bruits. Lungs: Decrease breath some bilateral fine rhonchi. Chest Wall: Decrease expansion with deep inspiration no tenderness and no deformity was found on exam, no costochondral pain or discomfort. Heart: Irregular rate and rhythm, S1, S2 normal, positive S3 positive JVD. Back: Symmetric, no curvature, ROM normal, no CVA tenderness. Abdomen: Soft, non-tender, bowel sounds active all four quadrants, no masses, no organomegaly. Extremities: Left stump area with a debridement and wound VAC looks very clean with well circulated tissue no necrotic tissue found no bleeding no induration or hematoma. Skin: Skin color, texture, tugor normal, no rashes or lesions. Neurologic: Alert oriented x3 cranial nerves II through XII intact, no motor deficit, no abnormal balance or gait. Assessment and Plan Assessment: 1 nonhealing wound on the stump area of the left leg since September, post surgical debridement and surgical wound VAC placement on it will continue patient on IV antibiotics with product like cefazolin after surgery. 2 post left below-knee amputation: Patient still not able to have prostatic leg at this point continue PTOT and wound care. Eliquis 3 A. fib with RVR: Patient will resume his anticoagulation tomorrow continue metoprolol. 4 polycythemia: Has been seen hematology still on hydroxyurea 500 mg every other day. 5 chronic anasarca and edema: Has been on furosemide 80 mg daily. 6 chronic systolic congestive heart failure: Remain on metoprolol 12.5 mg daily losartan 25 mg a day and furosemide. 7 chronic gout: On allopurinol 300 mg a day. 8 chronic infected stump: Has been on meropenem 1 g every 8 hours from a culture was done recently which patient will be going back on medication when he goes back to [facility]. 9 chronic iron deficiency anemia: Continue patient on iron supplement and effusion. 10 GI prophylaxis: Patient will be on Pepcid. 11 DVT prophylaxis: Remain on Eliquis. CODE STATUS: DO NOT RESUSCITATE. Dr. Mccoy thank you much for the consult for can be any further help to please let me know.
[2020-02-02] MEDS ORDERED: METOPROLOL SUCCINATE (ER) 25 MG TAB.ER.24H PO SCH (09:00)
[2020-02-02] MEDS ORDERED: NON FORMULARY DRUG (Vit C/E/Zn/Coppr/Lutein/Zeaxan [Preservision Areds 2 Softgel] 1 EACH) PO SCH (09:00)
[2020-02-02] MEDS ORDERED: allopurinoL 300 MG TAB PO SCH (09:00)
[2020-02-02] MEDS ORDERED: FUROSEMIDE 80 MG TAB PO SCH (09:00)
[2020-02-02] MEDS ORDERED: LOSARTAN 25 MG TAB PO SCH (09:00)
[2020-02-02] MEDS ORDERED: HYDROXYUREA 500 MG CAP PO SCH (09:00)
[2020-02-02] MEDS ORDERED: FAMOTIDINE 20 MG TAB PO SCH (09:00)
[2020-02-02] MEDS: LACTATED RINGERS 1,000 ML IV SCH (10:10)
--- NOTE | 2020-02-02 10:54 | P.PN ---
Subjective Progress Note Date: 02/02/20 89-year-old male one of my office patient of known very well who had left below- knee amputation done by Dr. Mccoy done in 10/20/2019 patient ended up going to [facility] for rehab has been seen by the wound clinic since, developed to have nonhealing stump with significant drainage more ischemic tissue. Was seen Dr. Mccoy again brought to the hospital today for elective debridement and wound VAC on the side of surgery. Surgical intervention was done today with no complication. Patient was admitted to the floor after surgery his alert awake having no difficulty in breathing and shortness of breath and pain is well controlled this time. Patient most likely will be going back to [facility] tanvir . 02/01: Patient seen this morning denies any major pain at this time. Plan for today to transfer back to [facility] with wound VAC in place to left BKA. Vital signs are stable patient remains afebrile, blood pressure 90/52, pulse rate 64, respirations 14, pulse ox 94% on 2 L via nasal cannula. We'll continue vancomycin and meropenem IV at [facility]. Assessment and Plan Assessment: 1 nonhealing wound on the stump area of the left leg 2 post left below-knee amputation: 3 A. fib with RVR: 4 polycythemia: 5 chronic anasarca and edema: 6 chronic systolic congestive heart failure: 7 chronic gout: . 8 chronic infected stump: 9 chronic iron deficiency anemia: CODE STATUS: DO NOT RESUSCITATE. Dr. Mccoy thank you much for the consult for can be any further help to please let me know. Discharge plan: To [facility] today Impression and plan of care have been directed as dictated by the signing physician. Vianney Velasquez nurse practitioner acting as scribe for signing physician. Objective - Vital Signs Vital signs: Vital Signs Temp 97.8 F 02/02/20 07:47 Pulse 64 02/02/20 07:47 Resp 14 02/02/20 07:47 BP 90/52 02/02/20 07:47 Pulse Ox 94 L 02/02/20 07:47 Intake & Output 02/01/20 02/02/20 02/02/20 18:59 06:59 18:59 Intake Total 400 Output Total 10 400 Balance 390 -400 Weight 64.86 kg Intake: IV 400 Output: Urine 400 Straight 400 Estimated Blood Loss 10 Other: Voiding Method Self-Catheterization Self-Catheterization Self-Catheterization # Bowel Movements 1
--- NOTE | 2020-02-02 11:55 | P.DS ---
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 He is status postop day #1 for excisional debridement of the left below-knee amputation wound and epiflex skin substitute placement along with wound VAC placement. The patient was admitted for observation and to work with case management for wound VAC coverage status post hospital stay. The patient resides at [facility] and will be returning once discharged. Assessment: The patient was seen and examined at the bedside with Dr. Link. The patient denies any pain. Left lower extremity below the knee amputation with wound VAC intact with good suction. He denies any fevers or chills through the night. Denies any shortness breath or chest pain. General appearance: The patient is alert, oriented, in no acute distress. HET: Head is normocephalic and atraumatic. Neck: Supple without lymphadenopathy. Heart: S1 S2. Regular rate and rhythm. Lungs: No crackles or wheezes are heard. Abdomen: Soft, nontender, nondistended with bowel sounds. Extremities: Left lower extremity below the knee amputation debridement site with intact wound VAC dressing AND good suction. Neurological: No focal deficits. Strength and sensation are grossly intact. ASSESSMENT: 1. Postop day #1 excisional debridement of the left [id number] amputation of the wound with epiflex skin substitute placement and wound VAC placement 2. Left below the knee amputation chronic wound PLAN: Case management to see patient regarding wound VAC coverage upon discharge. Plan is to be discharged today to [facility]. Strict instructions regarding leaving the wound VAC dressing in place for the next 7 days as it has EpiFix skin substitute placement. The above dictated assessment and findings were discussed with Dr. Link. The impression and plan of care have been directed as dictated. Procedures: Excisional debridement of the left below the knee amputation wound and EpiFix skin substitute placement, along with wound VAC placement Patient Condition at Discharge: Good Plan - Discharge Summary Discharge Rx Participant: No New Discharge Prescriptions: New Famotidine [Pepcid] 20 mg PO DAILY tab Continue Hydroxyurea [Hydrea] 500 mg PO Q48H Ferrous Sulfate [Iron (65 MG Elemental)] 325 mg PO 1700 allopurinoL [Zyloprim] 300 mg PO DAILY Apixaban [Eliquis] 2.5 mg PO BID Metoprolol Succinate [Toprol XL] 12.5 mg PO DAILY Vit C/E/Zn/Coppr/Lutein/Zeaxan [Preservision Areds 2 Softgel] 1 each PO DAILY Losartan [Cozaar] 25 mg PO DAILY #30 Potassium Citrate [Potassium Citrate ER] 10 meq PO 1700 Vancomycin 500 mg IVPB Q24HR Meropenem [Merrem] 1 gm IVPB Q8H Furosemide [Lasix] 80 mg PO DAILY Discharge Medication List Apixaban [Eliquis] 2.5 mg PO BID 10/15/19 [History] Ferrous Sulfate [Iron (65 MG Elemental)] 325 mg PO 1700 10/15/19 [History] Hydroxyurea [Hydrea] 500 mg PO Q48H 10/15/19 [History] Metoprolol Succinate [Toprol XL] 12.5 mg PO DAILY 10/15/19 [History] Vit C/E/Zn/Coppr/Lutein/Zeaxan [Preservision Areds 2 Softgel] 1 each PO DAILY 10/15/19 [History] allopurinoL [Zyloprim] 300 mg PO DAILY 10/15/19 [History] Losartan [Cozaar] 25 mg PO DAILY #30 10/22/19 [Rx] Potassium Citrate [Potassium Citrate ER] 10 meq PO 1700 12/06/19 [History] Furosemide [Lasix] 80 mg PO DAILY 01/31/20 [History] Meropenem [Merrem] 1 gm IVPB Q8H 01/31/20 [History] Vancomycin 500 mg IVPB Q24HR 01/31/20 [History] Famotidine [Pepcid] 20 mg PO DAILY tab 02/02/20 [Rx] Follow up Appointment(s)/Referral(s): Troy Mccoy DO [STAFF PHYSICIAN] - 1 Week Activity/Diet/Wound Care/Special Instructions: CONTINUE WOUND VAC ON DISCHARGE. DO NOT CHANGE WOUND VAC DRESSING FOR 7 DAYS, IT HAS EPIFIX SKIN SUBSTITUTE. Discharge Disposition: TRANSFER TO SNF/ECF
[2020-02-02 13:46] VITALS: BMI 21.1
[2020-02-02 14:38] VITALS: BP 89/55; PULSE 64; RESP 16; TEMP 97.5
[2020-02-02] MEDS ORDERED: POTASSIUM CITRATE 10 MEQ TABLET.ER PO SCH (17:00)
[2020-02-02] MEDS ORDERED: FERROUS SULFATE 325 MG TAB PO SCH (17:00)
== END 2020-02-02 16:44 | DRG 464 ==
LOC: OR 11:07 → 4SSUR 13:07
PROVIDERS: ADMIT Surgery; ATTEND Surgery
PROC: 0LBP0ZZ Excision of Left Lower Leg Tendon, Open Approach (ICD-10-PCS; principal; 2020-02-01 12:30)
PROC: 0HRLXK3 Replacement of Left Lower Leg Skin with Nonautologous Tissue Substitute, Full Thickness, External Approach (ICD-10-PCS; principal; 2020-02-01 12:30)
DX: T87.40 Infection of amputation stump, unspecified extremity (principal); I50.22 Chronic systolic (congestive) heart failure; Y83.5 Amputation of limb(s) as the cause of abnormal reaction of the patient, or of later complication, without mention of misadventure at the time of the procedure; Z11.59 Encounter for screening for other viral diseases; D45 Polycythemia vera; D50.9 Iron deficiency anemia, unspecified; H91.90 Unspecified hearing loss, unspecified ear; I48.91 Unspecified atrial fibrillation; M1A.9XX0 Chronic gout, unspecified, without tophus (tophi); N40.0 Benign prostatic hyperplasia without lower urinary tract symptoms; Z66 Do not resuscitate; Z79.01 Long term (current) use of anticoagulants; Z79.899 Other long term (current) drug therapy; Z82.79 Family history of other congenital malformations, deformations and chromosomal abnormalities; Z85.828 Personal history of other malignant neoplasm of skin; Z86.718 Personal history of other venous thrombosis and embolism; Z87.442 Personal history of urinary calculi; Z97.4 Presence of external hearing-aid; Z98.42 Cataract extraction status, left eye; Z98.41 Cataract extraction status, right eye; Z86.14 Personal history of Methicillin resistant Staphylococcus aureus infection; Z96.652 Presence of left artificial knee joint
CPT/HCPCS: 87635; 93005